=== PATIENT | female | born 1965 | race African-American/Black ===

== ENCOUNTER 2018-07-26 12:39 | Inpatient (IN) | payer OTHER ==
[2018-07-26 13:40] VITALS: BMI 19.5
--- NOTE | 2018-07-26 15:37 | HP ---
CIWA Score - CIWA Score Nausea/Vomitin Muscle Tremors: 2 Anxiety: 2 Agitation: 2 Paroxysmal Sweats: 1-Minimal Palms Moist Orientation: 0-Oriented Tacttile Disturbances: 1-Very Mild Itch/Numbness Auditory Disturbances: 1-Very Mild Visual Disturbances: 1-Very Mild Sensitivity Headache: 2-Mild CIWA-Ar Total Score: 15 Admission ROS BHS - HPI Chief Complaint: i need help to stop drinking alcohol,cocaine,marijuana,crystal met Allergies/Adverse Reactions: Allergies Allergy/AdvReac Type Severity Reaction Status Date / Time fluphenazine [From Prolixin] Allergy Severe Swelling Verified 06/04/18 22:16 haloperidol [From Haldol] Allergy Severe Swelling Verified 06/04/18 22:16 History of Present Illness: this 53 years old female with alcohol,cocaine and marijuana dependence,seeking detox,withdrawal symptom,last detox 06/04/18 to 06/07/18 not completed hiv since 1989 hearing loss left for 6 months schizophrenia multiple admissions in detox but keep relapsing longest period of sobriety 10 years weight loss schizophrenia Exam Limitations: No Limitations - Ebola screening Have you traveled outside of the country in the last 21 days: No Have you had contact with anyone from an Ebola affected area: No Have you been sick,other than usual withdrawal symptoms: No - Review of Systems Constitutional: Loss of Appetite, Malaise, Night Sweats, Changes in sleep, Weakness, Unintentional Wgt. Loss EENT: reports: Hearing Loss, Nose Congestion (hearing loss left) Respiratory: reports: Other (gini,copd) Cardiac: reports: No Symptoms Reported GI: reports: Diarrhea, Nausea, Vomiting, Abdominal cramping : reports: No Symptoms Reported Musculoskeletal: reports: Back Pain, Muscle Pain Integumentary: reports: Dryness Neuro: reports: Headache, Tremors Endocrine: reports: No Symptoms Reported Hematology: reports: No Symptoms Reported, Other (hiv) Psychiatric: reports: No Sypmtoms Reported, Judgement Intact, Mood/Affect Appropiate, other (schizophrenia) Patient History - Patient Medical History Hx Anemia: Yes (no meds ) Hx Asthma: Yes (on albuterol inhaler) Hx Chronic Obstructive Pulmonary Disease (COPD): Yes (on inhaler) Hx Cancer: No Hx Cardiac Disorders: No Hx Congestive Heart Failure: No Hx Hypertension: Yes (no med) Hx Hypercholesterolemia: No Hx Pacemaker: No HX Cerebrovascular Accident: No Hx Seizures: No Hx Dementia: No Hx Diabetes: No Hx Gastrointestinal Disorders: No Hx Liver Disease: No Hx Genitourinary Disorders: No Hx Sexually Transmitted Disorders: No Hx Renal Disease (ESRD): No Hx Thyroid Disease: No Hx Human Immunodeficiency Virus (HIV): Yes (1989 [place] ( reports CD count 182)) Hx Hepatitis C: No Hx Depression: Yes Hx Suicide Attempt: No Hx Bipolar Disorder: Yes Hx Schizophrenia: Yes Other Medical History: no suicidal,no homicidal - Patient Surgical History Past Surgical History: No - PPD History Previous Implant?: Yes Implanted On Prior [facility] Admission?: Yes Date: 06/06/18 Results: 0mm PPD to be Administered?: Yes - Reproductive History Patient is a Female of Child Bearing Age (11 -55 yrs old): Yes Patient : No - Smoking Cessation Smoking history: Current every day smoker Have you smoked in the past 12 months: Yes Aproximately how many cigarettes per day: 60 Hx Chewing Tobacco Use: No Initiated information on smoking cessation: Yes 'Breaking Loose' booklet given: 07/26/18 - Substance & Tx. History Hx Alcohol Use: Yes Hx Substance Use: Yes Substance Use Type: Alcohol, Cocaine, Marijuana Hx Substance Use Treatment: Yes ([facility] 06/04/18 to 06/07/18) - Substances Abused Alcohol Route: Oral Frequency: Daily Amount used: 1 liter of cognac Age of first use: 11 Date of Last Use: 07/25/18 Marijuana/Hashish Route: Smoking Frequency: Daily Amount used: $25 Age of first use: 11 Date of Last Use: 07/25/18 Crack Route: Smoking Frequency: Daily Amount used: $50-60 Age of first use: 11 Date of Last Use: 07/25/18 crystal meth Route: Inhalation Frequency: 1-3 times last 30 days Amount used: 1 hit Age of first use: 53 Date of Last Use: 07/25/18 Family Disease History - Family Disease History Family Disease History: Diabetes: Mother (, kidney disease ), CA: Father (alive, prostate CA ,dsa), Other: Father, Mother Admission Physical Exam BHS - Vital Signs Vital Signs: Vital Signs - 24 hr 07/26/18 13:38 Temperature 96.7 F L Pulse Rate 87 Respiratory 18 Rate Blood Pressure 113/74 - Physical General Appearance: Yes: Moderate Distress, Tremorous, Sweating, Anxious HEENTM: Yes: Normal ENT Inspection, RAMIRO, Pharynx Normal Respiratory: Yes: Lungs Clear, Normal Breath Sounds, No Respiratory Distress Neck: Yes: Within Normal Limits, Supple, Trachea in good position Breast: Yes: Breast Exam Deferred Cardiology: Yes: Within Normal Limits, Regular Rhythm, Regular Rate, S1, S2 Abdominal: Yes: Within Normal Limits, Normal Bowel Sounds, Non Tender, Soft Genitourinary: Yes: Within Normal Limits Back: Yes: Muscle Spasm Musculoskeletal: Yes: Back pain, Muscle Pain Extremities: Yes: Tremors Neurological: Yes: export coordinator II-XII NML intact, Alert, Motor Strength 5/5 Integumentary: Yes: Dry Lymphatic: Yes: Within Normal Limits - Diagnostic (1) Alcohol dependence with withdrawal Current Visit: No Status: Acute Qualifiers: Complication of substance-induced condition: uncomplicated Qualified Code(s ): F10.230 - Alcohol dependence with withdrawal, uncomplicated (2) Weight loss Current Visit: No Status: Acute (3) Cocaine dependence Current Visit: No Status: Chronic Qualifiers: Substance use status: uncomplicated Qualified Code(s): F14.20 - Cocaine dependence, uncomplicated (4) HIV (human immunodeficiency virus infection) Current Visit: No Status: Chronic (5) Hypertension Current Visit: No Status: Chronic Qualifiers: Hypertension type: essential hypertension Qualified Code(s): I10 - Essential (primary) hypertension (6) Marijuana dependence Current Visit: No Status: Chronic (7) Schizophrenia Current Visit: Yes Status: Acute Cleared for Admission [facility] - Detox or Rehab [facility] Level of Care: Medically Managed Detox Regimen/Protocol: Librium [facility] Breath Alcohol Content Breath Alcohol Content: 0 Urine Pregancy Test - Result Urine Test Results: Negative- NO Line Present Urine Drug Screen - Results Drug Screen Negative: No Urine Drug Screen Results: THC-Marijuana, HOMAR-Cocaine, AMP-Amphetamines, MET- Methamphetamine
[2018-07-26] MEDS ORDERED: IBUPROFEN 400 MG TABLET (FP) PO PRN (15:54)
[2018-07-26] MEDS ORDERED: NICOTINE POLACRILEX 4 MG GUM BC PRN (15:54)
[2018-07-26] MEDS ORDERED: ACETAMINOPHEN 325 MG TABLET (FP) PO PRN (15:54)
[2018-07-26] MEDS ORDERED: MAGNESIUM CITRATE 300 ML BOTTLE PO PRN (15:54)
[2018-07-26] MEDS ORDERED: diazePAM 5 MG TABLET PO PRN (15:54)
[2018-07-26] MEDS ORDERED: P-EPHED 60MG/TRIPROLIDI 2.5MG TABLET PO PRN (15:54)
[2018-07-26] MEDS ORDERED: MENTHOL/PHENOL 1 EACH UD MM PRN (15:54)
[2018-07-26] MEDS ORDERED: guaiFENesin/D-METHORPHAN HB 10 ML UNIT-DOSE CUPS PO PRN (15:54)
[2018-07-26] MEDS ORDERED: hydrOXYzine PAMOATE 25 MG CAPSULE (FP) PO PRN (15:54)
[2018-07-26] MEDS ORDERED: MAG HYDROX/AL HYDROX/SIMETH 30 ML UNIT-DOSE CUP PO PRN (15:54)
[2018-07-26] MEDS ORDERED: LOPERAMIDE HCL 2 MG CAPSULE PO PRN (15:54)
[2018-07-26] MEDS ORDERED: MAGNESIUM HYDROX 2400MG/30ML ORAL SUSPENSION 30 ML CUP PO PRN (15:54)
[2018-07-26] MEDS ORDERED: ALBUTEROL SO4 8 GM HFA INHALER IH PRN (16:01)
[2018-07-26] MEDS ORDERED: diazePAM 5 MG TABLET PO ONE (17:00)
[2018-07-26] MEDS: NICOTINE 21 MG/24 HOURS TOPICAL PATCH TD SCH (18:29)
[2018-07-26] MEDS ORDERED: THIAMINE HCL 100 MG TABLET (FP) PO SCH (22:00)
[2018-07-26] MEDS ORDERED: MELATONIN 5 MG TABLETS PO PRN (22:00)
[2018-07-26] MEDS: diazePAM 5 MG TABLET PO SCH (22:43)
[2018-07-27 02:28] LABS: URINE APPEARANCE SLCLOUDY; URINE BILIRUBIN NEGATIVE (<2.0 mg/dL); URINE COLOR YELLOW; URINE GLUCOSE (UA) NEGATIVE (NEGATIVE); URINE KETONE NEGATIVE (NEGATIVE); URINE NITRITE NEGATIVE (NEGATIVE); URINE UROBILINOGEN NEGATIVE mg/dL (0.2-1.0)
[2018-07-27 02:47] LABS: URINE LEUK ESTERASE 2+ (NEGATIVE); URINE PROTEIN 1+ (NEGATIVE)
[2018-07-27 02:56] LABS: EPI CELLS FEW /HPF (FEW); URINE HYALINE CAST 1 /lpf; URINE MUCUS RARE
[2018-07-27] MEDS: diazePAM 5 MG TABLET PO SCH ×2 (05:56→13:37)
[2018-07-27] MEDS ORDERED: SULFAMETHOXAZOLE/TRIMETHOPRIM 800MG/160MG D.S. TABLET PO SCH (10:00)
[2018-07-27] MEDS ORDERED: PRENATAL VITAMINS W/ FOLIC ACID TABLET (FP) PO SCH (10:00)
[2018-07-27] MEDS ORDERED: EMTRICITABINE 200MG/TENOFOVIR 300MG PO SCH (10:00)
[2018-07-27] MEDS ORDERED: TIOTROPIUM BROMIDE 2.5 MCG (SPIRIVA) RESPIMAT INHALER IH SCH (10:00)
[2018-07-27] MEDS ORDERED: DARUNAVIR ETHANOLATE 800 MG TAB PO SCH (10:00)
[2018-07-27] MEDS ORDERED: RITONAVIR 100 MG TABLET PO SCH (10:00)
[2018-07-27 10:04] LABS: HEMATOCRIT 30.7 % (32.4-45.2); HEMOGLOBIN 9.8 GM/dL (10.7-15.3); MCH 28.4 pg (25.7-33.7); MEAN CELL VOLUME 88.9 fl (80-96); MEAN PLT VOLUME 8.8 fl (7.5-11.1); PLATELET COUNT 212 K/MM3 (134-434); RBC 3.45 M/mm3 (3.60-5.2); RDW 14.9 % (11.6-15.6); WHITE BLOOD COUNT 5.5 K/mm3 (4.0-10.0)
[2018-07-27 10:19] LABS: ALBUMIN 2.7 g/dl (3.4-5.0); ALK PHOS 66 U/L (45-117); ANION GAP 8 MMOL/L (8-16); BILIRUBIN,TOTAL 0.4 mg/dL (0.2-1); BLOOD UREA NITROGEN 19 mg/dL (7-18); CALCIUM 8.6 mg/dL (8.5-10.1); CHLORIDE 112 mmol/L (98-107); CO2 23 mmol/L (21-32); CREATININE 0.8 mg/dL (0.55-1.3); GLUCOSE,RANDOM 74 mg/dL (74-106); POTASSIUM 4.2 mmol/L (3.5-5.1); SGOT/AST 27 U/L (15-37); SGPT/ALT 32 U/L (13-61); SODIUM 143 mmol/L (136-145)
--- NOTE | 2018-07-27 11:44 | EKG ---
Test Reason : Blood Pressure : / mmHG Vent. Rate : 066 BPM Atrial Rate : 066 BPM P-R Int : 138 ms QRS Dur : 082 ms QT Int : 408 ms P-R-T Axes : 078 -53 048 degrees QTc Int : 427 ms NORMAL SINUS RHYTHM LEFT ANTERIOR FASCICULAR BLOCK ABNORMAL ECG WHEN COMPARED WITH ECG OF 04-JUN-2018 22:52, NO SIGNIFICANT CHANGE WAS FOUND Confirmed by JONNATHAN POSADA, LUIS FELIPE ([id number]) on 07/27/2018 11:44:36 AM Referred By: Confirmed By:LUIS FELIPE DE SANTIAGO MD
[2018-07-27] MEDS ORDERED: FLU VACCINE QUAD 60 MCG/0.5 ML (MDV 18-19) IM ONE (12:00)
[2018-07-27] MEDS: NICOTINE 21 MG/24 HOURS TOPICAL PATCH TD SCH (12:47)
[2018-07-27 13:16] VITALS: BP 115/61; PULSE 106; TEMP 99.7
--- NOTE | 2018-07-27 13:55 | CONSULT ---
[facility] Psychiatric Consult - Data Date of interview: 07/27/18 Identifying data: Patient approached for psychiatric consultation. Pt. refusing to speak about her psychiatric history. Stated to movie writer, " Whats the point of this. I am going home." Pt. refused to continue conversation. Nursing staff informed.
--- NOTE | 2018-07-27 14:08 | DS ---
[facility] Detox Discharge Summary Admission Date: 07/26/18 Discharge Date: 07/27/18 - History Present History: Alcohol Dependence Additional Comments: 53 years old female admitted on 07/26/18 for alcohol withdrawal sx wants to leave the detox unit wants to go to rehab "I am ready" patient reported that she has an aftercare set up patient wants to go to aftercare today alert oriented x 3 no acute distress denies alcohol withdrawal sx Pertinent Past History: patient agrees to return to her infectious disease provider for follow up - Physical Exam Results Vital Signs: Vital Signs Temperature 99.7 F H 07/27/18 13:15 Pulse Rate 106 H 07/27/18 13:15 Respiratory Rate 20 07/27/18 13:15 Blood Pressure 115/61 07/27/18 13:15 O2 Sat by Pulse Oximetry (%) Pertinent Admission Physical Exam Findings: alcohol withdrawal sx Vital Signs Temperature 99.7 F H 07/27/18 13:15 Pulse Rate 106 H 07/27/18 13:15 Respiratory Rate 20 07/27/18 13:15 Blood Pressure 115/61 07/27/18 13:15 O2 Sat by Pulse Oximetry (%) Laboratory Last Values WBC 5.5 K/mm3 (4.0-10.0) 07/27/18 07:30 RBC 3.45 M/mm3 (3.60-5.2) L 07/27/18 07:30 Hgb 9.8 GM/dL (10.7-15.3) L 07/27/18 07:30 Hct 30.7 % (32.4-45.2) L 07/27/18 07:30 MCV 88.9 fl (80-96) 07/27/18 07:30 MCH 28.4 pg (25.7-33.7) 07/27/18 07:30 MCHC 32.0 g/dl (32.0-36.0) 07/27/18 07:30 RDW 14.9 % (11.6-15.6) 07/27/18 07:30 Plt Count 212 K/MM3 (134-434) 07/27/18 07:30 MPV 8.8 fl (7.5-11.1) 07/27/18 07:30 Sodium 143 mmol/L (136-145) 07/27/18 07:30 Potassium 4.2 mmol/L (3.5-5.1) 07/27/18 07:30 Chloride 112 mmol/L (98-107) H 07/27/18 07:30 Carbon Dioxide 23 mmol/L (21-32) 07/27/18 07:30 Anion Gap 8 MMOL/L (8-16) 07/27/18 07:30 BUN 19 mg/dL (7-18) H 07/27/18 07:30 Creatinine 0.8 mg/dL (0.55-1.3) 07/27/18 07:30 Creat Clearance w eGFR > 60 (>60) 07/27/18 07:30 Random Glucose 74 mg/dL (74-106) 07/27/18 07:30 Calcium 8.6 mg/dL (8.5-10.1) 07/27/18 07:30 Total Bilirubin 0.4 mg/dL (0.2-1) 07/27/18 07:30 AST 27 U/L (15-37) 07/27/18 07:30 ALT 32 U/L (13-61) 07/27/18 07:30 Alkaline Phosphatase 66 U/L (45-117) 07/27/18 07:30 Total Protein 7.0 g/dl (6.4-8.2) 07/27/18 07:30 Albumin 2.7 g/dl (3.4-5.0) L 07/27/18 07:30 Urine Color Yellow 07/26/18 23:30 Urine Appearance Slcloudy 07/26/18 23:30 Urine pH 5.0 (5.0-8.0) 07/26/18 23:30 Ur Specific [place] 1.025 (1.001-1.035) 07/26/18 23:30 Urine Protein 1+ (NEGATIVE) H 07/26/18 23:30 Urine Glucose (UA) Negative (NEGATIVE) 07/26/18 23:30 Urine Ketones Negative (NEGATIVE) 07/26/18 23:30 Urine Blood 1+ (NEGATIVE) H 07/26/18 23:30 Urine Nitrite Negative (NEGATIVE) 07/26/18 23:30 Urine Bilirubin Negative (<2.0 mg/dL) 07/26/18 23:30 Urine Urobilinogen Negative mg/dL (0.2-1.0) 07/26/18 23:30 Ur Leukocyte Esterase 2+ (NEGATIVE) H 07/26/18 23:30 Urine WBC (Auto) 25 /hpf (3-5) 07/26/18 23:30 Urine RBC (Auto) 15 /hpf (0-3) 07/26/18 23:30 Ur Epithelial Cells Few /HPF (FEW) 07/26/18 23:30 Hyaline Casts 1 /lpf 07/26/18 23:30 Urine Mucus Rare 07/26/18 23:30 RPR Titer Nonreactive (NONREACTIVE) 07/27/18 07:30 lab noted - Treatment Hospital Course: Detox Protocol Followed, Responded well Patient has Accepted a Rehab Referral to: as per counselor arranged - Medication Discharge Medications: Ambulatory Orders Darunavir Ethanolate [Prezista -] 800 mg PO DAILY 05/03/18 Emtricitabine/Tenofovir [Truvada -] 1 tab PO DAILY 05/03/18 Ritonavir [Norvir -] 100 mg PO DAILY 05/03/18 Albuterol Sulfate Inhaler - [Ventolin HFA Inhaler -] 2 puff IH Q4H PRN #1 inhaler 06/07/18 Sulfamethoxazole/Trimethoprim [Bactrim DS -] 1 each PO DAILY 07/26/18 Tiotropium [place] [Spiriva] 1 inh PO DAILY 07/26/18 - Diagnosis (1) Schizophrenia Current Visit: Yes Status: Suspected Qualifiers: Schizophrenia type: unspecified Qualified Code(s): F20.9 - Schizophrenia, unspecified (2) Alcohol dependence with withdrawal Current Visit: Yes Status: Acute Qualifiers: Complication of substance-induced condition: uncomplicated Qualified Code(s ): F10.230 - Alcohol dependence with withdrawal, uncomplicated (3) Asthma Current Visit: Yes Status: Chronic Qualifiers: Asthma severity: mild Asthma persistence: intermittent Asthma complication type: unspecified Qualified Code(s): J45.20 - Mild intermittent asthma, uncomplicated (4) Weight loss Current Visit: Yes Status: Acute (5) HIV (human immunodeficiency virus infection) Current Visit: Yes Status: Chronic (6) Hypertension Current Visit: Yes Status: Chronic Qualifiers: Hypertension type: essential hypertension Qualified Code(s): I10 - Essential (primary) hypertension - AMA Did Patient Leave Against Medical Advice: Yes
[2018-07-28] MEDS ORDERED: diazePAM 5 MG TABLET PO SCH (10:00)
[2018-07-30] MEDS ORDERED: diazePAM 5 MG TABLET PO SCH (10:00)
== END 2018-07-27 14:04 | disposition left against medical advice (07) | DRG 770 ==
LOC: YASAS 12:39 → Y6N 16:38
PROC: HZ2ZZZZ Detoxification Services for Substance Abuse Treatment (ICD-10-PCS; principal; 2018-07-26)
DX: F10.230 Alcohol dependence with withdrawal, uncomplicated (principal); F14.20 Cocaine dependence, uncomplicated; F12.20 Cannabis dependence, uncomplicated; F20.9 Schizophrenia, unspecified; B20 Human immunodeficiency virus [HIV] disease; I10 Essential (primary) hypertension; J45.20 Mild intermittent asthma, uncomplicated; H91.92 Unspecified hearing loss, left ear; R63.4 Abnormal weight loss; Z68.1 Body mass index [BMI] 19.9 or less, adult; N39.0 Urinary tract infection, site not specified; Z88.0 Allergy status to penicillin; Z59.0 Homelessness
CPT/HCPCS: 36415; 80053; 81003; 81015; 85027; 86593; 93005; 93010

== ENCOUNTER 2018-10-19 08:19 | Inpatient (IN) | payer OTHER ==
--- NOTE | 2018-10-19 09:05 | HP ---
CIWA Score Nausea/Vomitin Muscle Tremors: 2 Anxiety: 2 Agitation: 2 Paroxysmal Sweats: 1-Minimal Palms Moist Orientation: 0-Oriented Tacttile Disturbances: 1-Very Mild Itch/Numbness Auditory Disturbances: 1-Very Mild Visual Disturbances: 0-None Headache: 2-Mild CIWA-Ar Total Score: 13 - Admission Criteria [facility] Guidelines: Admission for Medically Managed Detox: Requires at least one of the followin. CIWA greater than 12 2. Seizures within the past 24 hours 3. Delirium tremens within the past 24 hours 4. Hallucinations within the past 24 hours 5. Acute intervention needed for co occurring medical disorder 6. Acute intervention needed for co occurring psychiatric disorder 7. Severe withdrawal that cannot be handled at a lower level of care (continued vomiting, continued diarrhea, abnormal vital signs) requiring intravenous medication and/or fluids 8. Patient presents the following: CIWA greater than 12 Admission Criteria Met: Admission criteria met Admission ROS S - HPI Chief Complaint: i need help to stop drinking alcohol,cocaine and marijuana Allergies/Adverse Reactions: Allergies Allergy/AdvReac Type Severity Reaction Status Date / Time fluphenazine [From Prolixin] Allergy Severe Swelling Verified 10/19/18 09:28 haloperidol [From Haldol] Allergy Severe Swelling Verified 10/19/18 09:28 History of Present Illness: this 53 years old male with alcohol,cocaine and marijuana dependence,,seeking detox,withdrawal symptom,last detox 07/26/18 to 07/27/18 not completed syncope nicotine dependence history if asthma,hypertension, hiv positive since 1989 non compliance ,no medication for 1 month longest period of sobriety 10 year bipolar disorder Exam Limitations: No Limitations - Ebola screening Have you traveled outside of the country in the last 21 days: No Have you had contact with anyone from an Ebola affected area: No - Review of Systems Constitutional: Loss of Appetite, Malaise, Night Sweats, Changes in sleep, Weakness, Unintentional Wgt. Loss EENT: reports: Nose Congestion, Other (hearinog deminish left ear) Respiratory: reports: No Symptoms reported (asthma) Cardiac: reports: No Symptoms Reported GI: reports: Nausea, Poor Appetite, Abdominal cramping : reports: No Symptoms Reported Musculoskeletal: reports: Back Pain, Muscle Pain Integumentary: reports: Dryness Neuro: reports: Headache, Tremors Endocrine: reports: No Symptoms Reported Hematology: reports: No Symptoms Reported, Other (hiv) Psychiatric: reports: No Sypmtoms Reported, Judgement Intact, Mood/Affect Appropiate, Orientated x3, other (bipolar disorder) Patient History - Patient Medical History Hx Anemia: Yes (no meds ) Hx Asthma: Yes (on albuterol inhaler) Hx Chronic Obstructive Pulmonary Disease (COPD): Yes (on inhaler) Hx Cancer: No Hx Cardiac Disorders: No Hx Congestive Heart Failure: No Hx Hypertension: Yes (no med) Hx Hypercholesterolemia: No Hx Pacemaker: No HX Cerebrovascular Accident: No Hx Seizures: No Hx Dementia: No Hx Diabetes: No Hx Gastrointestinal Disorders: No Hx Liver Disease: No Hx Genitourinary Disorders: No Hx Sexually Transmitted Disorders: No Hx Renal Disease (ESRD): No Hx Thyroid Disease: No Hx Human Immunodeficiency Virus (HIV): Yes (non compliance did not take madication fo 1 month) Hx Hepatitis C: No Hx Depression: Yes Hx Suicide Attempt: No Hx Bipolar Disorder: Yes Hx Schizophrenia: Yes Other Medical History: no suicidal,no homicidal,was told to have cancer of cervix [facility] assistant activities director - Patient Surgical History Past Surgical History: No - PPD History Previous Implant?: Yes Documented Results: Negative w/proof Date: 06/06/18 Results: 0mm PPD to be Administered?: No - Reproductive History Patient is a Female of Child Bearing Age (11 -55 yrs old): Yes Last Menstrual Period: 04/01/08 Patient : No - Smoking Cessation Smoking history: Current every day smoker Have you smoked in the past 12 months: Yes Aproximately how many cigarettes per day: 40 Hx Chewing Tobacco Use: No Initiated information on smoking cessation: Yes 'Breaking Loose' booklet given: 10/19/18 - Substance & Tx. History Hx Alcohol Use: Yes Hx Substance Use: Yes Substance Use Type: Alcohol, Cocaine, Marijuana Hx Substance Use Treatment: Yes ([facility] 07/26/18 to 07/27/18) - Substances Abused Alcohol Route: Oral Frequency: Daily Amount used: 2 pints of vodka Age of first use: 11 Date of Last Use: 10/18/18 Cocaine Route: Smoking Frequency: Daily Amount used: 50$ Age of first use: 19 Date of Last Use: 11/17/17 Marijuana/Hashish Route: Smoking Frequency: 1-2 times per week Amount used: 25$ Age of first use: 11 Date of Last Use: 10/12/18 Family Disease History - Family Disease History Family Disease History: Diabetes: Mother (, kidney disease ), CA: Father (alive, prostate CA ,dsa), Other: Father, Mother Admission Physical Exam S - Vital Signs Vital Signs: Vital Signs Temperature 96.9 F L 10/19/18 09:17 Pulse Rate 78 10/19/18 09:17 Respiratory Rate 20 10/19/18 09:17 Blood Pressure 117/70 10/19/18 09:17 O2 Sat by Pulse Oximetry (%) - Physical General Appearance: Yes: Moderate Distress, Tremorous, Irritable, Sweating, Anxious HEENTM: Yes: Normocephalic, RAMIRO, Pharynx Normal Respiratory: Yes: Lungs Clear, Normal Breath Sounds, No Respiratory Distress Neck: Yes: Within Normal Limits Breast: Yes: Breast Exam Deferred Cardiology: Yes: Within Normal Limits, Regular Rhythm, Regular Rate, S1, S2 Abdominal: Yes: Within Normal Limits, Normal Bowel Sounds, Non Tender, Flat, Soft Genitourinary: Yes: Within Normal Limits, Other (vaginal bleeding,history of ca of cervix,will follow up with assistant activities director at [facility]) Extremities: Yes: Tremors Neurological: Yes: process coordinator II-XII NML intact, Fully Oriented, Alert, Motor Strength 5/5 Integumentary: Yes: Dry Lymphatic: Yes: Within Normal Limits - Diagnostic (1) Weight loss Current Visit: No Status: Acute (2) Asthma Current Visit: No Status: Chronic Qualifiers: Asthma severity: mild Asthma persistence: intermittent Asthma complication type: unspecified Qualified Code(s): J45.20 - Mild intermittent asthma, uncomplicated (3) Cocaine dependence Current Visit: No Status: Chronic Qualifiers: Substance use status: uncomplicated Qualified Code(s): F14.20 - Cocaine dependence, uncomplicated (4) HIV (human immunodeficiency virus infection) Current Visit: No Status: Chronic (5) Hypertension Current Visit: No Status: Chronic Qualifiers: Hypertension type: essential hypertension Qualified Code(s): I10 - Essential (primary) hypertension (6) Marijuana dependence Current Visit: No Status: Chronic (7) Weight loss Current Visit: Yes Status: Acute (8) COPD (chronic obstructive pulmonary disease) Current Visit: Yes Status: Acute (9) History of malignant neoplasm of cervix Current Visit: Yes Status: Acute Cleared for Admission [facility] - Detox or Rehab [facility] Level of Care: Medically Managed Detox Regimen/Protocol: Librium [facility] Breath Alcohol Content Breath Alcohol Content: 0
[2018-10-19 09:21] VITALS: BMI 21.6
[2018-10-19] MEDS ORDERED: hydrOXYzine PAMOATE 25 MG CAPSULE (FP) PO PRN (09:24)
[2018-10-19] MEDS ORDERED: IBUPROFEN 400 MG TABLET (FP) PO PRN (09:24)
[2018-10-19] MEDS ORDERED: MAG HYDROX/AL HYDROX/SIMETH 30 ML UNIT-DOSE CUP PO PRN (09:24)
[2018-10-19] MEDS ORDERED: P-EPHED 60MG/TRIPROLIDI 2.5MG TABLET PO PRN (09:24)
[2018-10-19] MEDS ORDERED: MAGNESIUM HYDROX 2400MG/30ML ORAL SUSPENSION 30 ML CUP PO PRN (09:24)
[2018-10-19] MEDS ORDERED: ACETAMINOPHEN 325 MG TABLET (FP) PO PRN (09:24)
[2018-10-19] MEDS ORDERED: guaiFENesin/D-METHORPHAN HB 10 ML UNIT-DOSE CUPS PO PRN (09:24)
[2018-10-19] MEDS ORDERED: MENTHOL/PHENOL 1 EACH UD MM PRN (09:24)
[2018-10-19] MEDS ORDERED: chlordiazePOXIDE HCL 25 MG CAPSULE PO PRN (09:24)
[2018-10-19] MEDS ORDERED: LOPERAMIDE HCL 2 MG CAPSULE PO PRN (09:24)
[2018-10-19] MEDS ORDERED: MAGNESIUM CITRATE 300 ML BOTTLE PO PRN (09:24)
[2018-10-19] MEDS ORDERED: ALBUTEROL SO4 8 GM HFA INHALER IH PRN (10:20)
[2018-10-19] MEDS: chlordiazePOXIDE HCL 25 MG CAPSULE PO SCH ×3 (10:54→22:58)
[2018-10-19] MEDS: PRENATAL VITAMINS W/ FOLIC ACID TABLET (FP) PO SCH (10:54)
[2018-10-19] MEDS ORDERED: MELATONIN 5 MG TABLETS PO PRN (22:00)
[2018-10-19] MEDS: THIAMINE HCL 100 MG TABLET (FP) PO SCH (22:58)
[2018-10-20] MEDS: chlordiazePOXIDE HCL 25 MG CAPSULE PO SCH ×4 (06:09→22:36)
[2018-10-20 10:20] LABS: HEMOGLOBIN 11.8 GM/dL (10.7-15.3); MCH 27.7 pg (25.7-33.7); MEAN CELL VOLUME 89.3 fl (80-96); MEAN PLT VOLUME 9.3 fl (7.5-11.1); PLATELET COUNT 309 K/MM3 (134-434); RBC 4.26 M/mm3 (3.60-5.2); WHITE BLOOD COUNT 4.5 K/mm3 (4.0-10.0)
[2018-10-20] MEDS: PRENATAL VITAMINS W/ FOLIC ACID TABLET (FP) PO SCH (10:35)
[2018-10-20] MEDS: SULFAMETHOXAZOLE/TRIMETHOPRIM 800MG/160MG D.S. TABLET PO SCH (10:35)
[2018-10-20 10:49] LABS: ALBUMIN 3.4 g/dl (3.4-5.0); ALK PHOS 75 U/L (45-117); ANION GAP 7 MMOL/L (8-16); BILIRUBIN,TOTAL 0.3 mg/dL (0.2-1); BLOOD UREA NITROGEN 20 mg/dL (7-18); CALCIUM 8.8 mg/dL (8.5-10.1); CHLORIDE 108 mmol/L (98-107); CO2 22 mmol/L (21-32); CREATININE 0.7 mg/dL (0.55-1.3); GLUCOSE,RANDOM 83 mg/dL (74-106); POTASSIUM 4.1 mmol/L (3.5-5.1); SGOT/AST 20 U/L (15-37); SGPT/ALT 19 U/L (13-61); SODIUM 138 mmol/L (136-145); TOT PROT 8.8 g/dl (6.4-8.2)
[2018-10-20] MEDS: TIOTROPIUM BROMIDE 2.5 MCG (SPIRIVA) RESPIMAT INHALER IH SCH (14:36)
--- NOTE | 2018-10-20 15:10 | PN ---
S CIWA - CIWA Score Nausea/Vomitin-No Nausea/No Vomiting Muscle Tremors: None Anxiety: 4-Mod. Anxious/Guarded Agitation: 5 Paroxysmal Sweats: No Perspiration Orientation: 0-Oriented Tacttile Disturbances: 0-None Auditory Disturbances: 0-None Visual Disturbances: 0-None Headache: 0-None Present CIWA-Ar Total Score: 9 BHS Progress Note (SOAP) Subjective: PATIENT C/O INTERRUPTED SLEEP, IRRITABILITY AND ANXIETY. Objective: 10/20/18 15:08 Vital Signs Temperature 98.6 F 10/20/18 13:48 Pulse Rate 93 H 10/20/18 13:48 Respiratory Rate 16 10/20/18 13:48 Blood Pressure 131/82 10/20/18 13:48 O2 Sat by Pulse Oximetry (%) Laboratory Tests 10/20/18 10/20/18 10/20/18 05:45 05:45 05:45 WBC 4.5 RBC 4.26 Hgb 11.8 Hct 38.0 D MCV 89.3 MCH 27.7 MCHC 31.0 L RDW 16.0 H Plt Count 309 D MPV 9.3 Sodium 138 Potassium 4.1 Chloride 108 H Carbon Dioxide 22 Anion Gap 7 L BUN 20 H Creatinine 0.7 Creat Clearance w eGFR > 60 Random Glucose 83 Calcium 8.8 Total Bilirubin 0.3 AST 20 ALT 19 Alkaline Phosphatase 75 Total Protein 8.8 H Albumin 3.4 RPR Titer Nonreactive PE: ALERT AND ORIENTED X 3 SKIN WARM AND DRY EXT FULL ROM, NO EDEMA AMB AD TATA ANXIOUS, IRRITABLE. Assessment: 10/20/18 15:08 WITHDRAWAL SX Plan: CONTINUE DETOX ENCOURAGE ORAL FLUIDS REINFORCEMENT OF UNIT/DETOX PROTOCOL GIVEN BY STAFF CONTINUE TO MONITOR
[2018-10-20] MEDS: THIAMINE HCL 100 MG TABLET (FP) PO SCH (22:34)
[2018-10-21] MEDS: chlordiazePOXIDE HCL 25 MG CAPSULE PO SCH (06:34)
[2018-10-21] MEDS: chlordiazePOXIDE 5 MG CAPSULE PO SCH ×3 (10:42→23:00)
[2018-10-21] MEDS: SULFAMETHOXAZOLE/TRIMETHOPRIM 800MG/160MG D.S. TABLET PO SCH (10:42)
[2018-10-21] MEDS: TIOTROPIUM BROMIDE 2.5 MCG (SPIRIVA) RESPIMAT INHALER IH SCH (10:42)
[2018-10-21] MEDS: PRENATAL VITAMINS W/ FOLIC ACID TABLET (FP) PO SCH (10:50)
--- NOTE | 2018-10-21 11:24 | PN ---
S CIWA - CIWA Score Nausea/Vomitin Muscle Tremors: None Anxiety: 4-Mod. Anxious/Guarded Agitation: 4-Moderately Restless Paroxysmal Sweats: No Perspiration Orientation: 0-Oriented Tacttile Disturbances: 0-None Auditory Disturbances: 0-None Visual Disturbances: 0-None Headache: 2-Mild CIWA-Ar Total Score: 12 BHS Progress Note (SOAP) Subjective: PATIENT ANXIOUS/GUARDED AND EASILY AGITATED. C/O DIARRHEA AND HEADACHE. Objective: 10/21/18 11:22 Vital Signs Temperature 97.1 F L 10/21/18 09:53 Pulse Rate 115 H 10/21/18 09:53 Respiratory Rate 16 10/21/18 09:53 Blood Pressure 93/66 10/21/18 09:53 O2 Sat by Pulse Oximetry (%) Laboratory Tests 10/20/18 10/20/18 10/20/18 05:45 05:45 05:45 WBC 4.5 RBC 4.26 Hgb 11.8 Hct 38.0 D MCV 89.3 MCH 27.7 MCHC 31.0 L RDW 16.0 H Plt Count 309 D MPV 9.3 Sodium 138 Potassium 4.1 Chloride 108 H Carbon Dioxide 22 Anion Gap 7 L BUN 20 H Creatinine 0.7 Creat Clearance w eGFR > 60 Random Glucose 83 Calcium 8.8 Total Bilirubin 0.3 AST 20 ALT 19 Alkaline Phosphatase 75 Total Protein 8.8 H Albumin 3.4 RPR Titer Nonreactive PE; ALERT AND ORIENTED X 3 SKIN WARM AND DRY EXT FULL ROM, NO VISIBLE TREMORS IRRITABLE, ANSIOUS/GUARDED Assessment: 10/21/18 11:23 WITHDRAWAL SX Plan: CONTINUE DETOX ENCOURAGE ORAL FLUIDS CONTINUE TO MONITOR CLINICALLY
[2018-10-21] MEDS: THIAMINE HCL 100 MG TABLET (FP) PO SCH (23:00)
[2018-10-22] MEDS: chlordiazePOXIDE 5 MG CAPSULE PO SCH (06:00)
[2018-10-22 06:29] VITALS: BP 115/69; PULSE 79; TEMP 97
--- NOTE | 2018-10-22 08:51 | PN ---
S Progress Note (SOAP) Subjective: alert,irritable,anxious,interrupted sleep Objective: 10/22/18 08:51 Vital Signs Temperature 97 F L 10/22/18 06:29 Pulse Rate 79 10/22/18 06:29 Respiratory Rate 18 10/22/18 06:29 Blood Pressure 115/69 10/22/18 06:29 O2 Sat by Pulse Oximetry (%) Assessment: 10/22/18 08:51 withdrawal symptom Plan: continue detox
--- NOTE | 2018-10-22 08:53 | PN ---
S Progress Note Note: patient did ont want to complete treatment,signed release ama for personal problem
--- NOTE | 2018-10-22 09:00 | DS ---
[facility] Detox Discharge Summary Admission Date: 10/19/18 Discharge Date: 10/22/18 - History Present History: Alcohol Dependence, Cannabis Dependence, Cocaine Dependence Additional Comments: patient signed release ama,for personal reason,follow up with family doctor for medical problem,risk of relapsing explain for patient, to er if any emergency problem Pertinent Past History: hiv hypertension weight loss copd - Physical Exam Results Vital Signs: Vital Signs Temperature 97 F L 10/22/18 06:29 Pulse Rate 79 10/22/18 06:29 Respiratory Rate 18 10/22/18 06:29 Blood Pressure 115/69 10/22/18 06:29 O2 Sat by Pulse Oximetry (%) Pertinent Admission Physical Exam Findings: Vital Signs Temperature 97 F L 10/22/18 06:29 Pulse Rate 79 10/22/18 06:29 Respiratory Rate 18 10/22/18 06:29 Blood Pressure 115/69 10/22/18 06:29 O2 Sat by Pulse Oximetry (%) Laboratory Last Values WBC 4.5 K/mm3 (4.0-10.0) 10/20/18 05:45 RBC 4.26 M/mm3 (3.60-5.2) 10/20/18 05:45 Hgb 11.8 GM/dL (10.7-15.3) 10/20/18 05:45 Hct 38.0 % (32.4-45.2) D 10/20/18 05:45 MCV 89.3 fl (80-96) 10/20/18 05:45 MCH 27.7 pg (25.7-33.7) 10/20/18 05:45 MCHC 31.0 g/dl (32.0-36.0) L 10/20/18 05:45 RDW 16.0 % (11.6-15.6) H 10/20/18 05:45 Plt Count 309 K/MM3 (134-434) D 10/20/18 05:45 MPV 9.3 fl (7.5-11.1) 10/20/18 05:45 Sodium 138 mmol/L (136-145) 10/20/18 05:45 Potassium 4.1 mmol/L (3.5-5.1) 10/20/18 05:45 Chloride 108 mmol/L (98-107) H 10/20/18 05:45 Carbon Dioxide 22 mmol/L (21-32) 10/20/18 05:45 Anion Gap 7 MMOL/L (8-16) L 10/20/18 05:45 BUN 20 mg/dL (7-18) H 10/20/18 05:45 Creatinine 0.7 mg/dL (0.55-1.3) 10/20/18 05:45 Creat Clearance w eGFR > 60 (>60) 10/20/18 05:45 Random Glucose 83 mg/dL (74-106) 10/20/18 05:45 Calcium 8.8 mg/dL (8.5-10.1) 10/20/18 05:45 Total Bilirubin 0.3 mg/dL (0.2-1) 10/20/18 05:45 AST 20 U/L (15-37) 10/20/18 05:45 ALT 19 U/L (13-61) 10/20/18 05:45 Alkaline Phosphatase 75 U/L (45-117) 10/20/18 05:45 Total Protein 8.8 g/dl (6.4-8.2) H 10/20/18 05:45 Albumin 3.4 g/dl (3.4-5.0) 10/20/18 05:45 RPR Titer Nonreactive (NONREACTIVE) 10/20/18 05:45 - Medication Discharge Medications: Ambulatory Orders Darunavir Ethanolate [Prezista -] 800 mg PO DAILY 05/03/18 Emtricitabine/Tenofovir [Truvada -] 1 tab PO DAILY 05/03/18 Ritonavir [Norvir -] 100 mg PO DAILY 05/03/18 Albuterol Sulfate Inhaler - [Ventolin HFA Inhaler -] 2 puff IH Q4H PRN #1 inhaler 06/07/18 Sulfamethoxazole/Trimethoprim [Bactrim DS -] 1 each PO DAILY 07/26/18 Tiotropium Raven [Spiriva] 1 inh PO DAILY 07/26/18 - Diagnosis (1) Weight loss Current Visit: No Status: Acute (2) Asthma Current Visit: No Status: Chronic Qualifiers: Asthma severity: mild Asthma persistence: intermittent Asthma complication type: unspecified Qualified Code(s): J45.20 - Mild intermittent asthma, uncomplicated (3) Cocaine dependence Current Visit: No Status: Chronic Qualifiers: Substance use status: uncomplicated Qualified Code(s): F14.20 - Cocaine dependence, uncomplicated (4) HIV (human immunodeficiency virus infection) Current Visit: No Status: Chronic (5) Hypertension Current Visit: No Status: Chronic Qualifiers: Hypertension type: essential hypertension Qualified Code(s): I10 - Essential (primary) hypertension (6) Marijuana dependence Current Visit: No Status: Chronic (7) Weight loss Current Visit: Yes Status: Acute (8) COPD (chronic obstructive pulmonary disease) Current Visit: Yes Status: Acute (9) History of malignant neoplasm of cervix Current Visit: Yes Status: Acute - AMA Did Patient Leave Against Medical Advice: Yes
[2018-10-22] MEDS ORDERED: chlordiazePOXIDE HCL 10 MG CAPSULE PO SCH (11:00)
== END 2018-10-22 08:30 | disposition left against medical advice (07) | DRG 770 ==
LOC: YASAS 08:19 → Y3N 09:52
PROC: HZ2ZZZZ Detoxification Services for Substance Abuse Treatment (ICD-10-PCS; principal; 2018-10-19)
DX: F10.230 Alcohol dependence with withdrawal, uncomplicated (principal); F14.20 Cocaine dependence, uncomplicated; F12.20 Cannabis dependence, uncomplicated; F17.210 Nicotine dependence, cigarettes, uncomplicated; I10 Essential (primary) hypertension; J45.20 Mild intermittent asthma, uncomplicated; J44.9 Chronic obstructive pulmonary disease, unspecified; B20 Human immunodeficiency virus [HIV] disease; Z85.41 Personal history of malignant neoplasm of cervix uteri; Z91.14 Patient's other noncompliance with medication regimen; Z59.0 Homelessness
CPT/HCPCS: 36415; 80053; 85027; 86593

== ENCOUNTER 2020-07-10 13:10 | Inpatient (IN) | payer OTHER ==
--- NOTE | 2020-07-10 14:04 | BHS.RME ---
Substance Use & Tx History - Substance Use History Alcohol Substance amount: 2-3 beers x 24 ounce can, one pint Vodka once per month Frequency of use: Daily Substance route: Oral Date of Last Use: 07/09/20 Cocaine-Crack Substance amount: $100 Frequency of use: Daily Substance route: Smoking Date of Last Use: 07/09/20 Nicotine Substance amount: one pack Frequency of use: Daily Substance route: Smoking Date of Last Use: 07/10/20 - Last Treatment Date of last treatment: Oct 2018, [facility] detox Physical/Psych/Mental Status - Behavior General Behavior: Increased activity (restlessness, agitation) Eye Contact: Normal - Cooperativeness Cooperativeness: Cooperative - Thinking Thought Processes: Tight Thought content: Future oriented - Physical Health Problems Is patient presently having any pain?: No Does patient presently have any injuries (include location): Yes (fell one week ago, struck right leg) Does patient currently have a fever: No CIWA Nausea/Vomitin-No Nausea/No Vomiting Muscle Tremors: 3 Anxiety: 3 Agitation: 2 Paroxysmal Sweats: 1-Minimal Palms Moist Orientation: 0-Oriented Tacttile Disturbances: 0-None Auditory Disturbances: 0-None Visual Disturbances: 0-None Headache: 0-None Present (meets criteria, high risk relapse, comorbid med and psych issues) CIWA-Ar Total Score: 9
--- NOTE | 2020-07-10 15:56 | HP ---
CIWA Score Nausea/Vomitin-No Nausea/No Vomiting Muscle Tremors: 3 Anxiety: 3 Agitation: 2 Paroxysmal Sweats: 1-Minimal Palms Moist Orientation: 0-Oriented Tacttile Disturbances: 0-None Auditory Disturbances: 0-None Visual Disturbances: 0-None Headache: 0-None Present (meets criteria, high risk relapse, comorbid med and psych issues) CIWA-Ar Total Score: 9 - Admission Criteria OASAS Guidelines: Admission for Medically Managed Detox: Requires at least one of the followin. CIWA greater than 12 2. Seizures within the past 24 hours 3. Delirium tremens within the past 24 hours 4. Hallucinations within the past 24 hours 5. Acute intervention needed for co occurring medical disorder 6. Acute intervention needed for co occurring psychiatric disorder 7. Severe withdrawal that cannot be handled at a lower level of care (continued vomiting, continued diarrhea, abnormal vital signs) requiring intravenous medication and/or fluids 8. Admitting History and Physical - Past Medical History ...LMP: 04/01/08 - Smoking History Smoking history: Current every day smoker Have you smoked in the past 12 months: Yes Aproximately how many cigarettes per day: 40 - Alcohol/Substance Use Hx Alcohol Use: Yes Admission [facility] Chief Complaint: detox from crack cocaine and alcohol Allergies/Adverse Reactions: Allergies Allergy/AdvReac Type Severity Reaction Status Date / Time fluphenazine [From Prolixin] Allergy Severe Swelling Verified 07/10/20 16:50 haloperidol [From Haldol] Allergy Severe Swelling Verified 07/10/20 16:50 History of Present Illness: Patient is a 55 y/o female with a history of HIV, bipolar, and asthma who is here for detox from crack cocaine and alcohol. First started drinking alcohol at age 11. Drinks everyday, 2-3 24oz beers. Denies ever having a seizure from alcohol abuse. Denies blacking out from alcohol abuse. Positive for eyeopener. Patient has done rehab 2-3 times. Patient was sober for 5 years. Last used yesterday. Patient also uses crack, started using at age 24, uses 100 dollars a day, last used yesterday. never overdosed from crack, thinks in the pst she may have overdosed from cocaine as a teenager. Patient uses 1 pack of cigarettes a day. - Substance Use History Alcohol Substance amount: 2-3 beers x 24 ounce can, one pint Vodka once per month Frequency of use: Daily Substance route: Oral Date of Last Use: 07/09/20 Cocaine-Crack Substance amount: $100 Frequency of use: Daily Substance route: Smoking Date of Last Use: 07/09/20 Nicotine Substance amount: one pack Frequency of use: Daily Substance route: Smoking Date of Last Use: 07/10/20 SGHX: none psych: bipolar social: homeless, no job Patient meets criteria for inpatient detox from alcohol, poor social status and high risk of relapsing. - Ebola screening Have you traveled outside of the country in the last 21 days: No Have you had contact with anyone from an Ebola affected area: No Have you been sick,other than usual withdrawal symptoms: No Do you have a fever: No - Review of Systems Constitutional: Other (denies fever, chills) EENT: denies: Blurred Vision, Double Vision, Tinnitus Respiratory: denies: Cough, Shortness of Breath, Wheezing Cardiac: denies: Chest Pain GI: denies: Constipated, Diarrhea, Nausea, Vomiting : denies: Dysuria Musculoskeletal: reports: Back Pain. denies: Muscle Pain Integumentary: reports: Rash (groin rash). denies: Bruising Neuro: denies: Headache, Numbness, Tingling, Dizziness Endocrine: denies: Change in Weight Hematology: denies: Anemia Psychiatric: denies: Anxious, Depressed Patient History - Patient Medical History Hx Anemia: Yes (no meds ) Hx Asthma: Yes (on albuterol inhaler) Hx Chronic Obstructive Pulmonary Disease (COPD): Yes (on inhaler) Hx Cancer: No Hx Cardiac Disorders: No Hx Congestive Heart Failure: No Hx Hypertension: Yes (no med) Hx Hypercholesterolemia: No Hx Pacemaker: No HX Cerebrovascular Accident: No Hx Seizures: No Hx Dementia: No Hx Diabetes: No Hx Gastrointestinal Disorders: No Hx Liver Disease: No Hx Genitourinary Disorders: No Hx Sexually Transmitted Disorders: No Hx Renal Disease (ESRD): No Hx Thyroid Disease: No Hx Human Immunodeficiency Virus (HIV): Yes (non compliance did not take madication fo 1 month) Hx Hepatitis C: No Hx Depression: Yes Hx Suicide Attempt: No Hx Bipolar Disorder: Yes Hx Schizophrenia: Yes - Patient Surgical History Past Surgical History: No - PPD History Date: 06/06/18 Results: 0mm - Reproductive History Last Menstrual Period: 04/01/08 - Smoking Cessation Smoking history: Current every day smoker Have you smoked in the past 12 months: Yes Aproximately how many cigarettes per day: 40 Cigars Per Day: 0 Hx Chewing Tobacco Use: No Initiated information on smoking cessation: No - Substance & Tx. History Hx Alcohol Use: Yes - Substances abused Alcohol Substance route: Oral Frequency: Daily Amount used: 3 to 4 24 ounces can of beer/ half a pint vodka. Age of first use: 11 Date of last use: 07/10/20 Cocaine Other (specify): crack Substance route: Smoking Frequency: 1-2 times per week Amount used: 100 dollars Age of first use: 24 Date of last use: 07/10/20 Admission Physical Exam [facility] - Physical General Appearance: Yes: No Apparent Distress HEENTM: Yes: Hearing grossly Normal Respiratory: Yes: Within Normal Limits, Chest Non-Tender, Normal Breath Sounds, No Respiratory Distress Neck: Yes: Within Normal Limits Cardiology: Yes: Within Normal Limits, Regular Rhythm, Regular Rate Abdominal: Yes: Normal Bowel Sounds, Flat Musculoskeletal: Yes: full range of Motion Extremities: Yes: Normal Capillary Refill Neurological: Yes: Fully Oriented, Normal Mood/Affect, Normal Response Integumentary: Yes: Rash (to groin, some white crusting) - Diagnostic (1) Alcohol dependence with uncomplicated withdrawal Current Visit: No Status: Acute (2) COPD (chronic obstructive pulmonary disease) Current Visit: No Status: Acute (3) Asthma Current Visit: No Status: Chronic Qualifiers: Asthma severity: mild Asthma persistence: intermittent Asthma complication type: unspecified Qualified Code(s): J45.20 - Mild intermittent asthma, uncomplicated (4) HIV (human immunodeficiency virus infection) Current Visit: No Status: Chronic Cleared for Admission [facility] - Detox or Rehab [facility] Level of Care: Medically Managed Detox Regimen/Protocol: Librium Breathalyzer - Breathalyzer Breathalyzer: 0 Vital Signs - Vital Signs Vital signs refused: No Temperature: 97.3 F Pulse Rate: 89 Respiratory Rate: 20 Blood Pressure: 153/91 - Height Height: 5 ft 7 in - Weight Weight: 76.204 kg - BMI Body Mass Index (BMI): 26.3 Urine Drug Screen - Test Device Lot number: [id number] Expiration date: 02/06/22 - Control Is test valid?: Yes - Results Drug screen NEGATIVE: No Urine drug screen results: THC-Marijuana, HOMAR-Cocaine Inpatient Rehab Admission - Rehab Decision to Admit Inpatient rehab admission?: No
[2020-07-10 15:58] VITALS: BMI 26.3
[2020-07-10] MEDS ORDERED: ACETAMINOPHEN 325 MG TABLET (FP) PO PRN ×2 (16:02)
[2020-07-10] MEDS ORDERED: NICOTINE POLACRILEX 2 MG GUM BUC PRN (16:02)
[2020-07-10] MEDS ORDERED: MAG HYDROX/AL HYDROX/SIMETH 30 ML UNIT-DOSE CUP PO PRN (16:02)
[2020-07-10] MEDS ORDERED: METHOCARBAMOL 500 MG TABLET PO PRN (16:02)
[2020-07-10] MEDS ORDERED: MAGNESIUM CITRATE 300 ML BOTTLE PO PRN (16:02)
[2020-07-10] MEDS ORDERED: MAGNESIUM HYDROX 2400MG/30ML ORAL SUSPENSION 30 ML CUP PO PRN (16:02)
[2020-07-10] MEDS ORDERED: ONDANSETRON *ODT* 4 MG TABLET SL PRN (16:02)
[2020-07-10] MEDS ORDERED: chlordiazePOXIDE HCL 25 MG CAPSULE PO PRN (16:02)
[2020-07-10] MEDS ORDERED: IBUPROFEN 400 MG TABLET (FP) PO PRN (16:02)
[2020-07-10] MEDS ORDERED: MENTHOL/PHENOL 1 EACH UD MM PRN (16:02)
[2020-07-10] MEDS ORDERED: BISMUTH SUBSALICYLATE 524 MG/30 ML UD PO PRN (16:02)
[2020-07-10] MEDS ORDERED: ALBUTEROL SO4 HFA INHALER IH PRN (16:04)
[2020-07-10] MEDS: chlordiazePOXIDE HCL 25 MG CAPSULE PO SCH ×2 (18:10→22:14)
[2020-07-10] MEDS: PRENATAL VITAMINS W/ FOLIC ACID TABLET (FP) PO SCH (18:11)
[2020-07-10] MEDS: NICOTINE 21 MG/24 HOURS TOPICAL PATCH TD SCH (18:15)
[2020-07-10] MEDS: hydrOXYzine PAMOATE 25 MG CAPSULE (FP) PO SCH ×2 (18:15→22:14)
[2020-07-10] MEDS: NYSTATIN 100,000 UNIT/GM TOPICAL CREAM 15 GM TUBE TP SCH (19:41)
[2020-07-10] MEDS: THIAMINE HCL 100 MG TABLET (FP) PO SCH (22:14)
[2020-07-10] MEDS: MELATONIN 5 MG TABLETS PO SCH (22:14)
[2020-07-11] MEDS: NYSTATIN 100,000 UNIT/GM TOPICAL CREAM 15 GM TUBE TP SCH ×4 (01:31→18:12)
[2020-07-11] MEDS: chlordiazePOXIDE HCL 25 MG CAPSULE PO SCH ×4 (06:41→22:23)
[2020-07-11] MEDS: hydrOXYzine PAMOATE 25 MG CAPSULE (FP) PO SCH ×3 (06:41→14:14)
[2020-07-11] MEDS: NICOTINE 21 MG/24 HOURS TOPICAL PATCH TD SCH (09:58)
[2020-07-11] MEDS: PRENATAL VITAMINS W/ FOLIC ACID TABLET (FP) PO SCH (09:59)
[2020-07-11] MEDS: DARUNAVIR/COB/EMTRI/TENOF (SYMTUZA) TABLET (NF) PO SCH (09:59)
[2020-07-11] MEDS: TIOTROPIUM BROMIDE 2.5 MCG (SPIRIVA) RESPIMAT INHALER IH SCH (09:59)
[2020-07-11] MEDS ORDERED: EMTRICITABINE PO SCH (10:00)
[2020-07-11] MEDS ORDERED: TENOFOVIR ALAFENAMIDE PO SCH (10:00)
[2020-07-11] MEDS ORDERED: COBICISTAT PO SCH (10:00)
[2020-07-11] MEDS ORDERED: DARUNAVIR PO SCH (10:00)
[2020-07-11 11:02] LABS: HEMOGLOBIN 9.8 GM/dL (10.7-15.3); MCH 29.7 pg (25.7-33.7); MCHC 32.5 g/dl (32.0-36.0); MEAN CELL VOLUME 91.3 fl (80-96); MEAN PLT VOLUME 9.7 fl (7.5-11.1); PLATELET COUNT 124 K/MM3 (134-434); RBC 3.29 M/mm3 (3.60-5.2); RDW 14.6 % (11.6-15.6); WHITE BLOOD COUNT 2.5 K/mm3 (4.0-10.0)
[2020-07-11 11:18] LABS: ALBUMIN 2.7 g/dl (3.4-5.0); BLOOD UREA NITROGEN 8.7 mg/dL (7-18); CALCIUM 8.4 mg/dL (8.5-10.1); POTASSIUM 3.4 mmol/L (3.5-5.1)
--- NOTE | 2020-07-11 11:21 | CONSULT ---
[facility] Psychiatric Consult - Data Date of interview: 07/11/20 Admission source: [facility] Identifying data: Patient is a 55 year old black female, mother of five, unemployed, homeless, and is supported with SSI benefits. This is one of multiple admissions for patient. Patient admitted to for alcohol and cocaine dependence. Substance Abuse History: Smoking Cessation. Smoking history: Current every day smoker. Have you smoked in the past 12 months: Yes. Aproximately how many cigarettes per day: 40. Cigars Per Day: 0. Hx Chewing Tobacco Use: No. Initiated information on smoking cessation: No. - Substance & Tx. History. Hx Alcohol Use: Yes. - Substances abused. Alcohol. Substance route: Oral. Frequency: Daily. Amount used: 3 to 4 24 ounces can of beer/ half a pint vodka. Age of first use: 11. Date of last use: 07/10/20. Cocaine. Other (specify): crack. Substance route: Smoking. Frequency: 1-2 times per week. Amount used: 100 dollars. Age of first use: 24. Date of last use: 07/10/20 Medical History: Anemia, Asthma, Hypertension Psychiatric History: Patient reports history of multiple psychiatric hospitalizations since the age of 15. She reports hospitalizations at [facility], [facility], and other facilities in [place]. Diagnosis of Bipolar disorder. Ms. Avila most recent psychiatric hospitalization was in July of [address] [facility] due to mood dysregulation. She was prescribed Zyprexa 10mg + Depakote 1000mg HS. Patient see's Dr. Lui at the [facility] in [place]. States that she is currently prescribed zyprexa 10mg HS + Depakote 1000mg. Reports most recently taking her medications one week ago. No reported history of suicide attempt. At present patient reports stable mood. Physical/Sexual Abuse/Trauma History: Not discussed. Mental Status Exam - Mental Status Exam Alert and Oriented to: Time, Place, Person Cognitive Function: Good Patient Appearance: Well Groomed Mood: Withdrawn Affect: Mood Congruent Patient Behavior: Fatigued, Cooperative Speech Pattern: Appropriate Voice Loudness: Normal Thought Process: Goal Oriented Thought Disorder: Not Present Hallucinations: Denies Suicidal Ideation: Denies Homicidal Ideation: Denies Insight/Judgement: Poor Sleep: Fair Appetite: Fair Muscle strength/Tone: Normal Gait/Station: Normal Psychiatric Findings - Problem List ([place] 1, 2,3) (1) Cannabis dependence Current Visit: Yes Status: Acute (2) Alcohol dependence with uncomplicated withdrawal Current Visit: Yes Status: Acute (3) Cocaine dependence Current Visit: Yes Status: Chronic Qualifiers: Substance use status: uncomplicated Qualified Code(s): F14.20 - Cocaine dependence, uncomplicated (4) Bipolar disorder Current Visit: Yes Status: Chronic - Initial Treatment Plan Initial Treatment Plan: Psychoeducation provided. Detoxification in progress. Will order Zyprexa 10mg HS + Depakote 500mg HS. Benefits and side effects discussed. Verbal consent given.
[2020-07-11 11:23] LABS: BILIRUBIN,TOTAL 0.6 mg/dL (0.2-1); CREATININE 0.6 mg/dL (0.55-1.3); TOT PROT 7.8 g/dl (6.4-8.2)
[2020-07-11] MEDS ORDERED: PNEUMOC 13-VAL CONJ-DIP CRM/PF 0.5 ML DISP.SYRIN IM ONE (12:00)
[2020-07-11] MEDS ORDERED: hydrOXYzine PAMOATE 25 MG CAPSULE (FP) PO PRN (14:16)
--- NOTE | 2020-07-11 14:23 | PN ---
S CIWA - CIWA Score Nausea/Vomitin-No Nausea/No Vomiting Muscle Tremors: 2 Anxiety: 2 Agitation: 2 Paroxysmal Sweats: 2 Orientation: 0-Oriented Tacttile Disturbances: 0-None Auditory Disturbances: 0-None Visual Disturbances: 0-None Headache: 0-None Present CIWA-Ar Total Score: 8 S Progress Note (SOAP) Subjective: tired sleepy sweats interrupted sleep Objective: 07/11/20 14:22 Vital Signs Temperature 96.4 F L 07/11/20 09:01 Pulse Rate 74 07/11/20 09:01 Respiratory Rate 18 07/11/20 09:01 Blood Pressure 145/87 07/11/20 09:01 O2 Sat by Pulse Oximetry (%) 96 07/11/20 09:01 Laboratory Tests 07/11/20 07/11/20 07/11/20 08:45 08:45 08:45 WBC 2.5 L RBC 3.29 L Hgb 9.8 L Hct 30.0 L D MCV 91.3 MCH 29.7 MCHC 32.5 RDW 14.6 Plt Count 124 L D MPV 9.7 Sodium 143 Potassium 3.4 L Chloride 114 H Carbon Dioxide 26 Anion Gap 4 L BUN 8.7 Creatinine 0.6 Est GFR (CKD-EPI)AfAm 117.27 Est GFR (CKD-EPI)NonAf 101.18 Random Glucose 83 Calcium 8.4 L Total Bilirubin 0.6 AST 17 ALT 17 Alkaline Phosphatase 64 Total Protein 7.8 Albumin 2.7 L Syphilis Serology Non-reactive labs noted low potassium 3.4 low H:H noted aaox3 ambulating no acute distress Assessment: 07/11/20 14:22 withdrawals Plan: continue detox increase fluids kdur [id number] x 3 days ordered iron supplement ordered repeat labs
[2020-07-11] MEDS: POTASSIUM CHLORIDE ORAL LIQUID 20 MEQ/15 ML PO SCH (15:11)
[2020-07-11] MEDS: FERROUS SO4 325 MG TABLET (FP) PO SCH (18:09)
[2020-07-11] MEDS: DIVALPROEX SODIUM 500 MG TABLET E.C. PO SCH (22:23)
[2020-07-11] MEDS: THIAMINE HCL 100 MG TABLET (FP) PO SCH (22:23)
[2020-07-11] MEDS: OLANZapine 10 MG TABLET PO SCH (22:23)
[2020-07-11] MEDS: MELATONIN 5 MG TABLETS PO SCH (22:24)
[2020-07-12] MEDS: NYSTATIN 100,000 UNIT/GM TOPICAL CREAM 15 GM TUBE TP SCH ×4 (01:41→22:14)
[2020-07-12] MEDS: chlordiazePOXIDE HCL 25 MG CAPSULE PO SCH ×4 (06:00→22:14)
[2020-07-12] MEDS: FERROUS SO4 325 MG TABLET (FP) PO SCH ×3 (08:18→17:56)
[2020-07-12] MEDS: NICOTINE 21 MG/24 HOURS TOPICAL PATCH TD SCH (10:44)
[2020-07-12] MEDS: POTASSIUM CHLORIDE ORAL LIQUID 20 MEQ/15 ML PO SCH (10:44)
[2020-07-12] MEDS: PRENATAL VITAMINS W/ FOLIC ACID TABLET (FP) PO SCH (10:44)
[2020-07-12] MEDS: DARUNAVIR/COB/EMTRI/TENOF (SYMTUZA) TABLET (NF) PO SCH (10:44)
[2020-07-12] MEDS: TIOTROPIUM BROMIDE 2.5 MCG (SPIRIVA) RESPIMAT INHALER IH SCH (10:44)
--- NOTE | 2020-07-12 11:45 | PN ---
S CIWA - CIWA Score Nausea/Vomitin-No Nausea/No Vomiting Muscle Tremors: 2 Anxiety: 2 Agitation: 3 Paroxysmal Sweats: 2 Orientation: 0-Oriented Tacttile Disturbances: 0-None Auditory Disturbances: 0-None Visual Disturbances: 0-None Headache: 0-None Present CIWA-Ar Total Score: 9 S Progress Note (SOAP) Subjective: sweats shakes chills body aches interrupted sleep Objective: 07/12/20 11:43 Vital Signs Temperature 97.3 F L 07/12/20 05:45 Pulse Rate 70 07/12/20 05:45 Respiratory Rate 07/12/20 05:45 Blood Pressure 146/86 07/12/20 05:45 O2 Sat by Pulse Oximetry (%) 98 07/12/20 05:45 Laboratory Tests 07/10/20 07/11/20 07/11/20 17:00 08:45 08:45 WBC 2.5 L RBC 3.29 L Hgb 9.8 L Hct 30.0 L D MCV 91.3 MCH 29.7 MCHC 32.5 RDW 14.6 Plt Count 124 L D MPV 9.7 Sodium Potassium Chloride Carbon Dioxide Anion Gap BUN Creatinine Est GFR (CKD-EPI)AfAm Est GFR (CKD-EPI)NonAf Random Glucose Calcium Total Bilirubin AST ALT Alkaline Phosphatase Total Protein Albumin Syphilis Serology Non-reactive COVID-19 (WM) Not detected 07/11/20 08:45 WBC RBC Hgb Hct MCV MCH MCHC RDW Plt Count MPV Sodium 143 Potassium 3.4 L Chloride 114 H Carbon Dioxide 26 Anion Gap 4 L BUN 8.7 Creatinine 0.6 Est GFR (CKD-EPI)AfAm 117.27 Est GFR (CKD-EPI)NonAf 101.18 Random Glucose 83 Calcium 8.4 L Total Bilirubin 0.6 AST 17 ALT 17 Alkaline Phosphatase 64 Total Protein 7.8 Albumin 2.7 L Syphilis Serology COVID-19 (WM) aaox3 lying in bed no acute distress Assessment: 07/12/20 11:44 withdrawals Plan: continue detox labs ordered
[2020-07-12] MEDS: THIAMINE HCL 100 MG TABLET (FP) PO SCH (22:13)
[2020-07-12] MEDS: DIVALPROEX SODIUM 500 MG TABLET E.C. PO SCH (22:13)
[2020-07-12] MEDS: OLANZapine 10 MG TABLET PO SCH (22:13)
[2020-07-12] MEDS: MELATONIN 5 MG TABLETS PO SCH (22:14)
[2020-07-13] MEDS ORDERED: chlordiazePOXIDE HCL 10 MG CAPSULE PO PRN
[2020-07-13] MEDS: NYSTATIN 100,000 UNIT/GM TOPICAL CREAM 15 GM TUBE TP SCH (05:51)
[2020-07-13] MEDS: chlordiazePOXIDE HCL 10 MG CAPSULE PO SCH ×4 (05:51→22:05)
[2020-07-13] MEDS: FERROUS SO4 325 MG TABLET (FP) PO SCH ×3 (07:46→17:39)
[2020-07-13 09:27] LABS: BASO % 0.3 % (0-2.0); EOS % 1.6 % (0-4.5); HEMATOCRIT 33.9 % (32.4-45.2); HEMOGLOBIN 11.2 GM/dL (10.7-15.3); LYMPH % 67.2 % (8-40); MCH 30.5 pg (25.7-33.7); MCHC 33.2 g/dl (32.0-36.0); MEAN CELL VOLUME 91.9 fl (80-96); MEAN PLT VOLUME 9.8 fl (7.5-11.1); MONO % 12.6 % (3.8-10.2); NEUT % 18.3 % (42.8-82.8); PLATELET COUNT 145 K/MM3 (134-434); RBC 3.68 M/mm3 (3.60-5.2); RDW 14.4 % (11.6-15.6); WHITE BLOOD COUNT 3.3 K/mm3 (4.0-10.0)
[2020-07-13 09:41] LABS: ALBUMIN 2.9 g/dl (3.4-5.0); BILIRUBIN,TOTAL 0.7 mg/dL (0.2-1); BLOOD UREA NITROGEN 11.5 mg/dL (7-18); CALCIUM 8.6 mg/dL (8.5-10.1); CREATININE 0.7 mg/dL (0.55-1.3); POTASSIUM 4.1 mmol/L (3.5-5.1); TOT PROT 8.4 g/dl (6.4-8.2)
[2020-07-13] MEDS: PRENATAL VITAMINS W/ FOLIC ACID TABLET (FP) PO SCH (10:21)
[2020-07-13] MEDS: NICOTINE 21 MG/24 HOURS TOPICAL PATCH TD SCH (10:21)
[2020-07-13] MEDS: POTASSIUM CHLORIDE ORAL LIQUID 20 MEQ/15 ML PO SCH (10:21)
[2020-07-13] MEDS: DARUNAVIR/COB/EMTRI/TENOF (SYMTUZA) TABLET (NF) PO SCH (10:24)
[2020-07-13] MEDS: TIOTROPIUM BROMIDE 2.5 MCG (SPIRIVA) RESPIMAT INHALER IH SCH (10:25)
[2020-07-13 12:15] LABS: ANISOCYTOSIS 0; MACROCYTOSIS 0; PLATELET ESTIMATE DECREASED
--- NOTE | 2020-07-13 19:14 | PN ---
S CIWA - CIWA Score Nausea/Vomitin-No Nausea/No Vomiting Muscle Tremors: 2 Anxiety: 2 Agitation: 1-Slight > Activity Paroxysmal Sweats: 2 Orientation: 0-Oriented Tacttile Disturbances: 0-None Auditory Disturbances: 1-Very Mild Visual Disturbances: 2-Mild Sensitivity Headache: 0-None Present CIWA-Ar Total Score: 10 BHS Progress Note (SOAP) Subjective: Sweating, Fatigue, Tremors. Objective: Patient A & O X 3, Observed Ambulating on Detox Unit Unassisted. In No Acute Distress. 07/13/20 19:10 Vital Signs Temperature 97.3 F L 07/13/20 16:45 Pulse Rate 79 07/13/20 16:45 Respiratory Rate 20 07/13/20 16:45 Blood Pressure 141/90 07/13/20 16:45 O2 Sat by Pulse Oximetry (%) 98 07/13/20 12:31 Laboratory Tests 07/10/20 07/11/20 07/11/20 17:00 08:45 08:45 WBC 2.5 L RBC 3.29 L Hgb 9.8 L Hct 30.0 L D MCV 91.3 MCH 29.7 MCHC 32.5 RDW 14.6 Plt Count 124 L D MPV 9.7 Absolute Neuts (auto) Neutrophils % Neutrophils % (Manual) Band Neutrophils % Lymphocytes % Lymphocytes % (Manual) Monocytes % Monocytes % (Manual) Eosinophils % Eosinophils % (Manual) Basophils % Basophils % (Manual) Myelocytes % (Man) Promyelocytes % (Man) Blast Cells % (Manual) Nucleated RBC % Metamyelocytes Hypochromia Platelet Estimate Polychromasia Anisocytosis Microcytosis Macrocytosis Sodium Potassium Chloride Carbon Dioxide Anion Gap BUN Creatinine Est GFR (CKD-EPI)AfAm Est GFR (CKD-EPI)NonAf Random Glucose Calcium Total Bilirubin AST ALT Alkaline Phosphatase Total Protein Albumin Syphilis Serology Non-reactive COVID-19 (WM) Not detected 07/11/20 07/13/20 07/13/20 08:45 07:40 07:40 WBC 3.3 L RBC 3.68 Hgb 11.2 Hct 33.9 MCV 91.9 MCH 30.5 MCHC 33.2 RDW 14.4 Plt Count 145 MPV 9.8 Absolute Neuts (auto) 0.6 L Neutrophils % 18.3 L Neutrophils % (Manual) 16.3 L Band Neutrophils % 0.0 Lymphocytes % 67.2 H Lymphocytes % (Manual) 71.4 H Monocytes % 12.6 H Monocytes % (Manual) 8 Eosinophils % 1.6 Eosinophils % (Manual) 2.1 Basophils % 0.3 Basophils % (Manual) 0.0 Myelocytes % (Man) 0 Promyelocytes % (Man) 0 Blast Cells % (Manual) 0 Nucleated RBC % 0 Metamyelocytes 0 Hypochromia 0 Platelet Estimate Decreased Polychromasia 0 Anisocytosis 0 Microcytosis 0 Macrocytosis 0 Sodium 143 144 Potassium 3.4 L 4.1 Chloride 114 H 111 H Carbon Dioxide 26 31 Anion Gap 4 L 2 L BUN 8.7 11.5 Creatinine 0.6 0.7 Est GFR (CKD-EPI)AfAm 117.27 111.47 Est GFR (CKD-EPI)NonAf 101.18 96.18 Random Glucose 83 80 Calcium 8.4 L 8.6 Total Bilirubin 0.6 0.7 AST 17 20 ALT 17 19 Alkaline Phosphatase 64 72 Total Protein 7.8 8.4 H Albumin 2.7 L 2.9 L Syphilis Serology COVID-19 (WM) Lab results noted. Results of Repeat CBC and CMP noted: WBC elevated (3.3) in comparison to Detox Admission level; however, still low. RBC, HGB, HCT, and Platelet levels increased and now within normal range. K level now in normal range (4.1). Will D/C K-Dur. 07/13/20 19:11 Assessment: 07/13/20 19:11 WITHDRAWAL SYMPTOMS. LEUKOPENIA. 07/13/20 19:14 Plan: Continue Detox. Blood Pressure intermittently elevated on last several readings. Patient reports history of HTN; however, no previous treatment. Continue to monitor.
[2020-07-13] MEDS: OLANZapine 10 MG TABLET PO SCH (22:05)
[2020-07-13] MEDS: MELATONIN 5 MG TABLETS PO SCH (22:05)
[2020-07-13] MEDS: THIAMINE HCL 100 MG TABLET (FP) PO SCH (22:05)
[2020-07-13] MEDS: DIVALPROEX SODIUM 500 MG TABLET E.C. PO SCH (22:05)
[2020-07-14] MEDS ORDERED: chlordiazePOXIDE HCL 10 MG CAPSULE PO SCH (05:00)
[2020-07-14] MEDS: NYSTATIN 100,000 UNIT/GM TOPICAL CREAM 15 GM TUBE TP SCH ×3 (06:27→10:45)
[2020-07-14] MEDS: FERROUS SO4 325 MG TABLET (FP) PO SCH (07:08)
[2020-07-14] MEDS ORDERED: MASKS NR ONE (07:36)
[2020-07-14] MEDS: PRENATAL VITAMINS W/ FOLIC ACID TABLET (FP) PO SCH (10:43)
[2020-07-14] MEDS: DARUNAVIR/COB/EMTRI/TENOF (SYMTUZA) TABLET (NF) PO SCH (10:44)
[2020-07-14] MEDS: NICOTINE 21 MG/24 HOURS TOPICAL PATCH TD SCH (10:45)
[2020-07-14] MEDS: TIOTROPIUM BROMIDE 2.5 MCG (SPIRIVA) RESPIMAT INHALER IH SCH (10:46)
[2020-07-14 12:17] VITALS: BP 115/66; PULSE 83; TEMP 97.3
--- NOTE | 2020-07-14 17:02 | DS ---
[facility] Detox Discharge Summary Admission Date: 07/10/20 Discharge Date: 07/14/20 - History Present History: Alcohol Dependence, Cocaine Dependence Additional Comments: Pt requested to be discharged today. As per patient, her was on the 3rd floor and signed out and she wants to leave with him. Pt denies any complaints. Pt was scheduled for discharge tomorrow but stated that she feels fine and denies any complaints. Pt instructed to follow up with her PCP within one week. Pt discharged safely in stable condition. Pertinent Past History: Nicotine dependence HIV Asthma HTN Anemia - Physical Exam Results Vital Signs: Vital Signs Temperature 97.3 F L 07/14/20 09:14 Pulse Rate 83 07/14/20 09:14 Respiratory Rate 18 07/14/20 09:14 Blood Pressure 115/66 07/14/20 09:14 O2 Sat by Pulse Oximetry (%) 94 L 07/14/20 08:15 Pertinent Admission Physical Exam Findings: Withdrawal sxs Laboratory Tests 07/10/20 07/11/20 07/11/20 17:00 08:45 08:45 WBC 2.5 L RBC 3.29 L Hgb 9.8 L Hct 30.0 L D MCV 91.3 MCH 29.7 MCHC 32.5 RDW 14.6 Plt Count 124 L D MPV 9.7 Absolute Neuts (auto) Neutrophils % Neutrophils % (Manual) Band Neutrophils % Lymphocytes % Lymphocytes % (Manual) Monocytes % Monocytes % (Manual) Eosinophils % Eosinophils % (Manual) Basophils % Basophils % (Manual) Myelocytes % (Man) Promyelocytes % (Man) Blast Cells % (Manual) Nucleated RBC % Metamyelocytes Hypochromia Platelet Estimate Polychromasia Anisocytosis Microcytosis Macrocytosis Sodium Potassium Chloride Carbon Dioxide Anion Gap BUN Creatinine Est GFR (CKD-EPI)AfAm Est GFR (CKD-EPI)NonAf Random Glucose Calcium Total Bilirubin AST ALT Alkaline Phosphatase Total Protein Albumin Syphilis Serology Non-reactive COVID-19 (WM) Not detected 07/11/20 07/13/20 07/13/20 08:45 07:40 07:40 WBC 3.3 L RBC 3.68 Hgb 11.2 Hct 33.9 MCV 91.9 MCH 30.5 MCHC 33.2 RDW 14.4 Plt Count 145 MPV 9.8 Absolute Neuts (auto) 0.6 L Neutrophils % 18.3 L Neutrophils % (Manual) 16.3 L Band Neutrophils % 0.0 Lymphocytes % 67.2 H Lymphocytes % (Manual) 71.4 H Monocytes % 12.6 H Monocytes % (Manual) 8 Eosinophils % 1.6 Eosinophils % (Manual) 2.1 Basophils % 0.3 Basophils % (Manual) 0.0 Myelocytes % (Man) 0 Promyelocytes % (Man) 0 Blast Cells % (Manual) 0 Nucleated RBC % 0 Metamyelocytes 0 Hypochromia 0 Platelet Estimate Decreased Polychromasia 0 Anisocytosis 0 Microcytosis 0 Macrocytosis 0 Sodium 143 144 Potassium 3.4 L 4.1 Chloride 114 H 111 H Carbon Dioxide 26 31 Anion Gap 4 L 2 L BUN 8.7 11.5 Creatinine 0.6 0.7 Est GFR (CKD-EPI)AfAm 117.27 111.47 Est GFR (CKD-EPI)NonAf 101.18 96.18 Random Glucose 83 80 Calcium 8.4 L 8.6 Total Bilirubin 0.6 0.7 AST 17 20 ALT 17 19 Alkaline Phosphatase 64 72 Total Protein 7.8 8.4 H Albumin 2.7 L 2.9 L Syphilis Serology COVID-19 (WM) Labs reviewed: pancytopenia and hypoalbuminemia noted (most likely due to alcoholism), follow up with PCP for management - Treatment Hospital Course: Detox Protocol Followed, Detoxed Safely, Responded well, Discharged Condition Good - Medication Discharge Medications: Ambulatory Orders Albuterol Sulfate Inhaler - [Ventolin HFA Inhaler -] 2 puff IH Q4H PRN #1 inhaler 06/07/18 Tiotropium Hector [Spiriva] 1 inh PO DAILY 07/26/18 Darunavir/Cob/Emtri/Tenof Alaf [Symtuza [phone] mg Tab] 1 mg PO DAILY 07/10/20 Divalproex Sodium [Depakote] 1,000 mg PO HS 07/10/20 Olanzapine [Zyprexa] 10 mg PO DAILY 07/10/20 - Diagnosis (1) Pancytopenia Status: Acute (2) Hypoalbuminemia Status: Acute (3) Nicotine dependence Status: Chronic (4) Anemia Status: Chronic (5) Alcohol dependence with uncomplicated withdrawal Status: Acute (6) Asthma Status: Chronic Qualifiers: Asthma severity: mild Asthma persistence: intermittent Asthma complication type: unspecified Qualified Code(s): J45.20 - Mild intermittent asthma, uncomplicated (7) Bipolar disorder Status: Chronic (8) Cocaine dependence Status: Chronic Qualifiers: Substance use status: uncomplicated Qualified Code(s): F14.20 - Cocaine dependence, uncomplicated (9) HIV (human immunodeficiency virus infection) Status: Chronic (10) Hypertension Status: Chronic Qualifiers: Hypertension type: essential hypertension Qualified Code(s): I10 - Essential (primary) hypertension - AMA Did Patient Leave Against Medical Advice: No (Follow up with PCP within one week)
[2020-07-15] MEDS ORDERED: chlordiazePOXIDE HCL 10 MG CAPSULE PO ONE (05:00)
== END 2020-07-14 15:05 | disposition home or self-care (01) | DRG 774 ==
LOC: YASAS 13:10 → Y6N 16:57
PROVIDERS: ADMIT Allergy & Immunology; ATTEND Allergy & Immunology
PROC: HZ2ZZZZ Detoxification Services for Substance Abuse Treatment (ICD-10-PCS; principal; 2020-07-10)
DX: F10.230 Alcohol dependence with withdrawal, uncomplicated (principal); F14.20 Cocaine dependence, uncomplicated; F12.20 Cannabis dependence, uncomplicated; F17.210 Nicotine dependence, cigarettes, uncomplicated; F31.9 Bipolar disorder, unspecified; Z21 Asymptomatic human immunodeficiency virus [HIV] infection status; D64.9 Anemia, unspecified; D61.818 Other pancytopenia; D72.819 Decreased white blood cell count, unspecified; E88.09 Other disorders of plasma-protein metabolism, not elsewhere classified; J44.9 Chronic obstructive pulmonary disease, unspecified; J45.20 Mild intermittent asthma, uncomplicated; Z88.8 Allergy status to other drugs, medicaments and biological substances; Z56.0 Unemployment, unspecified; Z59.0 Homelessness
CPT/HCPCS: 36415; 80053; 85025; 85027; 86780; 90670; U0003

== ENCOUNTER 2021-04-08 09:05 | Inpatient (IN) | payer OTHER ==
[2021-04-08 09:42] VITALS: BMI 20.3
[2021-04-08] MEDS ORDERED: LORazepam 1 MG TABLET PO PRN (09:49)
[2021-04-08] MEDS ORDERED: METHOCARBAMOL 500 MG TABLET PO PRN (09:49)
[2021-04-08] MEDS ORDERED: NICOTINE POLACRILEX 2 MG GUM BUC PRN (09:49)
[2021-04-08] MEDS ORDERED: BISMUTH SUBSALICYLATE 262 MG/15 ML BTL PO PRN (09:49)
[2021-04-08] MEDS ORDERED: MAG HYDROX/AL HYDROX/SIMETH 30 ML UNIT-DOSE CUP PO PRN (09:49)
[2021-04-08] MEDS ORDERED: MAGNESIUM CITRATE 300 ML BOTTLE PO PRN (09:49)
[2021-04-08] MEDS ORDERED: ONDANSETRON *ODT* 4 MG TABLET SL PRN (09:49)
[2021-04-08] MEDS ORDERED: ACETAMINOPHEN 325 MG TABLET (FP) PO PRN ×2 (09:49)
[2021-04-08] MEDS ORDERED: IBUPROFEN 400 MG TABLET (FP) PO PRN (09:49)
[2021-04-08] MEDS ORDERED: MENTHOL/PHENOL 1 EACH UD MM PRN (09:49)
[2021-04-08] MEDS ORDERED: MAGNESIUM HYDROX 2400MG/30ML ORAL SUSPENSION 30 ML CUP PO PRN (09:49)
[2021-04-08] MEDS ORDERED: ALBUTEROL SO4 HFA INHALER IH PRN (09:54)
[2021-04-08] MEDS: hydrOXYzine PAMOATE 25 MG CAPSULE (FP) PO SCH ×4 (11:19→22:50)
[2021-04-08] MEDS: PRENATAL VITAMINS W/ FOLIC ACID TABLET (FP) PO SCH (11:19)
[2021-04-08] MEDS: SULFAMETHOXAZOLE/TRIMETHOPRIM 800MG/160MG D.S. TABLET PO SCH (11:19)
[2021-04-08] MEDS: FERROUS SO4 325 MG TABLET (FP) PO SCH (11:19)
[2021-04-08] MEDS: NICOTINE 14 MG/24 HOURS TOPICAL PATCH TD SCH (11:20)
[2021-04-08] MEDS: DARUNAVIR/COB/EMTRI/TENOF (SYMTUZA) TABLET (NF) PO SCH (12:09)
[2021-04-08 15:32] LABS: EPI CELLS 16 /uL (0-25.1); HYALINE CASTS 8 /uL (0-3.1); PH,URINE 5.5 (5.0-8.0); URINE APPEARANCE CLOUDY; URINE BACTERIA 819 /uL (0-1359); URINE BILIRUBIN NEGATIVE (NEGATIVE); URINE COLOR DK YELLOW; URINE GLUCOSE (UA) NEGATIVE (NEGATIVE); URINE KETONE TRACE (NEGATIVE); URINE LEUK ESTERASE 3+ (NEGATIVE); URINE NITRITE NEGATIVE (NEGATIVE); URINE PROTEIN TRACE (NEGATIVE); URINE RBC 4 /uL (0-23.9); URINE WBC 393 /uL (0-25.8)
[2021-04-08] MEDS: LORazepam 2 MG TABLET PO SCH ×2 (18:20→22:51)
[2021-04-08] MEDS: DIVALPROEX SODIUM 500 MG TABLET E.C. PO SCH (22:50)
[2021-04-08] MEDS: MELATONIN 5 MG TABLETS PO SCH (22:50)
[2021-04-08] MEDS: THIAMINE HCL 100 MG TABLET (FP) PO SCH (22:50)
[2021-04-09] MEDS: LORazepam 2 MG TABLET PO SCH ×4 (05:48→22:53)
[2021-04-09] MEDS: hydrOXYzine PAMOATE 25 MG CAPSULE (FP) PO SCH ×5 (05:49→22:51)
[2021-04-09] MEDS: DARUNAVIR/COB/EMTRI/TENOF (SYMTUZA) TABLET (NF) PO SCH (08:54)
[2021-04-09] MEDS: NICOTINE 14 MG/24 HOURS TOPICAL PATCH TD SCH (10:23)
[2021-04-09] MEDS: DIVALPROEX SODIUM 500 MG TABLET E.C. PO SCH ×2 (10:23→22:52)
[2021-04-09] MEDS: SULFAMETHOXAZOLE/TRIMETHOPRIM 800MG/160MG D.S. TABLET PO SCH (10:23)
[2021-04-09] MEDS: FERROUS SO4 325 MG TABLET (FP) PO SCH (10:23)
[2021-04-09] MEDS: PRENATAL VITAMINS W/ FOLIC ACID TABLET (FP) PO SCH (10:23)
[2021-04-09 10:52] LABS: HEMOGLOBIN 9.5 GM/dL (10.7-15.3); MCH 30.1 pg (25.7-33.7); MCHC 32.9 g/dl (32.0-36.0); MEAN CELL VOLUME 91.5 fl (80-96); MEAN PLT VOLUME 10.4 fl (7.5-11.1); PLATELET COUNT 165 K/MM3 (134-434); RBC 3.17 M/mm3 (3.60-5.2); WHITE BLOOD COUNT 4.1 K/mm3 (4.0-10.0)
[2021-04-09 11:10] LABS: ALBUMIN 3.4 g/dl (3.4-5.0)
[2021-04-09 11:14] LABS: BLOOD UREA NITROGEN 38.4 mg/dL (7-18)
[2021-04-09 11:18] LABS: CREATININE 1.1 mg/dL (0.55-1.3)
[2021-04-09 11:19] LABS: BILIRUBIN,TOTAL 0.5 mg/dL (0.2-1); TOT PROT 9.4 g/dl (6.4-8.2)
[2021-04-09] MEDS: NITROFURANTOIN MACROCRYSTAL 50 MG CAPSULE (FP) PO SCH ×2 (17:21→17:24)
[2021-04-09] MEDS: THIAMINE HCL 100 MG TABLET (FP) PO SCH (22:51)
[2021-04-09] MEDS: MELATONIN 5 MG TABLETS PO SCH (22:51)
[2021-04-10] MEDS: NITROFURANTOIN MACROCRYSTAL 50 MG CAPSULE (FP) PO SCH ×3 (01:33→11:18)
[2021-04-10] MEDS: LORazepam 1 MG TABLET PO SCH ×2 (05:48→10:28)
[2021-04-10] MEDS: hydrOXYzine PAMOATE 25 MG CAPSULE (FP) PO SCH ×3 (05:48→13:34)
[2021-04-10] MEDS: DARUNAVIR/COB/EMTRI/TENOF (SYMTUZA) TABLET (NF) PO SCH (07:09)
[2021-04-10] MEDS: DIVALPROEX SODIUM 500 MG TABLET E.C. PO SCH (10:26)
[2021-04-10] MEDS: PRENATAL VITAMINS W/ FOLIC ACID TABLET (FP) PO SCH (10:26)
[2021-04-10] MEDS: FERROUS SO4 325 MG TABLET (FP) PO SCH (10:26)
[2021-04-10] MEDS: SULFAMETHOXAZOLE/TRIMETHOPRIM 800MG/160MG D.S. TABLET PO SCH (10:26)
[2021-04-10] MEDS: NICOTINE 14 MG/24 HOURS TOPICAL PATCH TD SCH (10:27)
[2021-04-10 13:23] VITALS: BP 104/61; PULSE 86; TEMP 96.3
[2021-04-11] MEDS ORDERED: LORazepam 0.5 MG TABLET PO PRN
[2021-04-11] MEDS ORDERED: LORazepam 0.5 MG TABLET PO SCH (05:00)
[2021-04-12] MEDS ORDERED: LORazepam 0.5 MG TABLET PO ONE (05:00)
== END 2021-04-10 17:04 | disposition left against medical advice (07) | DRG 770 ==
LOC: YASAS 09:05 → Y6N 10:04
PROVIDERS: ADMIT Allergy & Immunology; ATTEND Allergy & Immunology
PROC: HZ2ZZZZ Detoxification Services for Substance Abuse Treatment (ICD-10-PCS; principal; 2021-04-08)
DX: F10.230 Alcohol dependence with withdrawal, uncomplicated (principal); F14.20 Cocaine dependence, uncomplicated; F12.20 Cannabis dependence, uncomplicated; F17.210 Nicotine dependence, cigarettes, uncomplicated; F31.9 Bipolar disorder, unspecified; Z21 Asymptomatic human immunodeficiency virus [HIV] infection status; D64.9 Anemia, unspecified; J45.20 Mild intermittent asthma, uncomplicated; N39.0 Urinary tract infection, site not specified; Z88.8 Allergy status to other drugs, medicaments and biological substances
CPT/HCPCS: 36415; 80053; 80164; 81003; 85027; 86780; C9803; U0003; U0005

== ENCOUNTER 2022-07-17 09:32 | Inpatient (IN) | payer OTHER ==
[2022-07-17 10:37] VITALS: BMI 23.5
[2022-07-17] MEDS ORDERED: NICOTINE POLACRILEX 4 MG GUM BUC PRN (11:33)
[2022-07-17] MEDS ORDERED: BENZOCAINE/MENTHOL (CHLORASEPTIC ) LOZENGE MM PRN (11:33)
[2022-07-17] MEDS ORDERED: MAGNESIUM CITRATE 300 ML BOTTLE PO PRN (11:33)
[2022-07-17] MEDS ORDERED: IBUPROFEN 600 MG TABLET (FP) PO PRN (11:33)
[2022-07-17] MEDS ORDERED: ONDANSETRON *ODT* 4 MG TABLET SL PRN (11:33)
[2022-07-17] MEDS ORDERED: MAG HYDROX/AL HYDROX/SIMETH 30 ML UNIT-DOSE CUP PO PRN (11:33)
[2022-07-17] MEDS ORDERED: LOPERAMIDE HCL 2 MG CAPSULE PO PRN (11:33)
[2022-07-17] MEDS ORDERED: ACETAMINOPHEN 325 MG TABLET (FP) PO PRN ×2 (11:33)
[2022-07-17] MEDS ORDERED: NICOTINE 10 MG CARTRIDGE (INHALER) IH PRN (11:33)
[2022-07-17] MEDS ORDERED: IBUPROFEN 400 MG TABLET (FP) PO PRN (11:33)
[2022-07-17] MEDS ORDERED: chlordiazePOXIDE HCL 25 MG CAPSULE PO PRN (11:33)
[2022-07-17] MEDS ORDERED: BISMUTH SUBSALICYLATE 524 MG/30 ML PO PRN (11:33)
[2022-07-17] MEDS ORDERED: DICYCLOMINE HCL 10 MG CAPSULE PO PRN (11:33)
[2022-07-17] MEDS ORDERED: MAGNESIUM HYDROX 2400MG/30ML ORAL SUSPENSION 30 ML CUP PO PRN (11:33)
[2022-07-17] MEDS ORDERED: NALOXONE HCL (KLOXXADO) 8 MG SPRAY NS PRN (11:33)
[2022-07-17] MEDS ORDERED: ALBUTEROL SO4 HFA INHALER IH PRN (11:43)
[2022-07-17] MEDS: METHOCARBAMOL 500 MG TABLET PO PRN (12:44)
[2022-07-17] MEDS: NICOTINE 7 MG/24 HOURS TOPICAL PATCH TD SCH (12:53)
[2022-07-17 13:28] LABS: HEMATOCRIT 35.2 % (32.4-45.2); HEMOGLOBIN 11.9 GM/dL (10.7-15.3); MCH 31.4 pg (25.7-33.7); MCHC 33.8 g/dl (32.0-36.0); MEAN PLT VOLUME 8.8 fl (7.5-11.1); PLATELET COUNT 287 10^3/uL (134-434); RBC 3.79 M/mm3 (3.60-5.2); RDW 15.4 % (11.6-15.6); WHITE BLOOD COUNT 7.9 K/mm3 (4.0-10.0)
[2022-07-17] MEDS: hydrOXYzine PAMOATE 25 MG CAPSULE (FP) PO SCH ×3 (13:48→23:11)
[2022-07-17 13:51] LABS: ALBUMIN 3.7 g/dl (3.4-5.0)
[2022-07-17 13:52] LABS: BLOOD UREA NITROGEN 30.8 mg/dL (7-18); CALCIUM 9.1 mg/dL (8.5-10.1)
[2022-07-17 13:54] LABS: BILIRUBIN,TOTAL 0.4 mg/dL (0.2-1); CREATININE 1.3 mg/dL (0.55-1.3); TOT PROT 8.7 g/dl (6.4-8.2)
[2022-07-17] MEDS ORDERED: LACTULOSE 20 GM/30 ML UDC (FOR ORAL USE ONLY) PO PRN (14:14)
[2022-07-17] MEDS: chlordiazePOXIDE HCL 25 MG CAPSULE PO SCH (20:04)
[2022-07-17] MEDS ORDERED: LACTULOSE 20 GM/30 ML UDC (FOR ORAL USE ONLY) PO SCH (22:00)
[2022-07-17] MEDS: LACTULOSE 20 GM/30 ML UDC (FOR ORAL USE ONLY) PO SCH (23:06)
[2022-07-17] MEDS: MELATONIN 5 MG TABLETS PO SCH (23:11)
[2022-07-17] MEDS: THIAMINE HCL 100 MG TABLET (FP) PO SCH (23:12)
[2022-07-18] MEDS: chlordiazePOXIDE HCL 25 MG CAPSULE PO SCH ×5 (00:18→22:13)
[2022-07-18] MEDS: hydrOXYzine PAMOATE 25 MG CAPSULE (FP) PO SCH ×5 (06:32→23:22)
[2022-07-18] MEDS: PRENATAL VITAMINS W/ FOLIC ACID TABLET (FP) PO SCH (11:21)
[2022-07-18] MEDS: LACTULOSE 20 GM/30 ML UDC (FOR ORAL USE ONLY) PO SCH ×2 (11:21→22:17)
[2022-07-18] MEDS: NICOTINE 7 MG/24 HOURS TOPICAL PATCH TD SCH (11:31)
[2022-07-18] MEDS: METHOCARBAMOL 500 MG TABLET PO PRN (17:56)
[2022-07-18] MEDS: THIAMINE HCL 100 MG TABLET (FP) PO SCH (22:13)
[2022-07-18] MEDS: MELATONIN 5 MG TABLETS PO SCH (22:13)
[2022-07-19] MEDS ORDERED: chlordiazePOXIDE HCL 25 MG CAPSULE PO SCH (05:00)
[2022-07-19] MEDS: hydrOXYzine PAMOATE 25 MG CAPSULE (FP) PO SCH ×5 (06:51→22:03)
[2022-07-19] MEDS: LACTULOSE 20 GM/30 ML UDC (FOR ORAL USE ONLY) PO SCH ×2 (10:45→22:03)
[2022-07-19] MEDS: PRENATAL VITAMINS W/ FOLIC ACID TABLET (FP) PO SCH (10:45)
[2022-07-19] MEDS ORDERED: DARUNAVIR/COB/EMTRI/TENOF (SYMTUZA) TABLET (NF) PO SCH (10:45)
[2022-07-19] MEDS: NICOTINE 7 MG/24 HOURS TOPICAL PATCH TD SCH (10:46)
[2022-07-19] MEDS ORDERED: LORazepam 1 MG TABLET PO PRN (10:47)
[2022-07-19] MEDS: SULFAMETHOXAZOLE/TRIMETHOPRIM 800MG/160MG D.S. TABLET PO SCH (10:55)
[2022-07-19] MEDS ORDERED: SYMTUZA PO ONE (14:15)
[2022-07-19] MEDS: LORazepam 2 MG TABLET PO SCH ×2 (18:05→22:02)
[2022-07-19] MEDS: THIAMINE HCL 100 MG TABLET (FP) PO SCH (22:02)
[2022-07-19] MEDS: MELATONIN 5 MG TABLETS PO SCH (22:03)
[2022-07-20] MEDS ORDERED: chlordiazePOXIDE HCL 10 MG CAPSULE PO PRN
[2022-07-20] MEDS ORDERED: chlordiazePOXIDE HCL 10 MG CAPSULE PO SCH (05:00)
[2022-07-20] MEDS: hydrOXYzine PAMOATE 25 MG CAPSULE (FP) PO SCH ×5 (06:06→22:27)
[2022-07-20] MEDS: LORazepam 1 MG TABLET PO SCH ×4 (06:07→22:26)
[2022-07-20] MEDS ORDERED: LACTULOSE 20 GM/30 ML UDC (FOR ORAL USE ONLY) PO ONE (09:30)
[2022-07-20] MEDS: PRENATAL VITAMINS W/ FOLIC ACID TABLET (FP) PO SCH (10:34)
[2022-07-20] MEDS: SULFAMETHOXAZOLE/TRIMETHOPRIM 800MG/160MG D.S. TABLET PO SCH (10:34)
[2022-07-20] MEDS: NICOTINE 7 MG/24 HOURS TOPICAL PATCH TD SCH (10:34)
[2022-07-20] MEDS: METHOCARBAMOL 500 MG TABLET PO PRN (10:38)
[2022-07-20] MEDS: LACTULOSE 20 GM/30 ML UDC (FOR ORAL USE ONLY) PO SCH ×3 (14:23→23:18)
[2022-07-20] MEDS: THIAMINE HCL 100 MG TABLET (FP) PO SCH (22:27)
[2022-07-20] MEDS: MELATONIN 5 MG TABLETS PO SCH (22:28)
[2022-07-21] MEDS ORDERED: LORazepam 0.5 MG TABLET PO PRN
[2022-07-21] MEDS ORDERED: chlordiazePOXIDE HCL 10 MG CAPSULE PO SCH (05:00)
[2022-07-21] MEDS: hydrOXYzine PAMOATE 25 MG CAPSULE (FP) PO SCH ×5 (05:50→23:27)
[2022-07-21] MEDS: LORazepam 0.5 MG TABLET PO SCH ×4 (05:50→22:29)
[2022-07-21] MEDS: PRENATAL VITAMINS W/ FOLIC ACID TABLET (FP) PO SCH (10:25)
[2022-07-21] MEDS: NICOTINE 7 MG/24 HOURS TOPICAL PATCH TD SCH (10:25)
[2022-07-21] MEDS: SULFAMETHOXAZOLE/TRIMETHOPRIM 800MG/160MG D.S. TABLET PO SCH (10:25)
[2022-07-21] MEDS: LACTULOSE 20 GM/30 ML UDC (FOR ORAL USE ONLY) PO SCH ×4 (10:27→22:30)
[2022-07-21 18:30] VITALS: RESP 18
[2022-07-21 21:44] VITALS: TEMP 97.1
[2022-07-21] MEDS: THIAMINE HCL 100 MG TABLET (FP) PO SCH (22:29)
[2022-07-21] MEDS: MELATONIN 5 MG TABLETS PO SCH (22:30)
[2022-07-22] MEDS ORDERED: chlordiazePOXIDE HCL 10 MG CAPSULE PO ONE (05:00)
[2022-07-22] MEDS ORDERED: LORazepam 0.5 MG TABLET PO ONE (05:00)
[2022-07-22] MEDS: hydrOXYzine PAMOATE 25 MG CAPSULE (FP) PO SCH ×2 (06:30→10:31)
[2022-07-22 09:17] VITALS: BP 145/96; PULSE 97
[2022-07-22] MEDS: PRENATAL VITAMINS W/ FOLIC ACID TABLET (FP) PO SCH (10:29)
[2022-07-22] MEDS: NICOTINE 7 MG/24 HOURS TOPICAL PATCH TD SCH (10:30)
[2022-07-22] MEDS: SULFAMETHOXAZOLE/TRIMETHOPRIM 800MG/160MG D.S. TABLET PO SCH (10:31)
[2022-07-22] MEDS: LACTULOSE 20 GM/30 ML UDC (FOR ORAL USE ONLY) PO SCH (10:31)
== END 2022-07-22 10:52 | disposition home or self-care (01) | DRG 774 ==
LOC: YASAS 09:32 → Y6N 11:35
PROVIDERS: ADMIT Allergy & Immunology; ATTEND Family Medicine Addiction Medicine
PROC: HZ2ZZZZ Detoxification Services for Substance Abuse Treatment (ICD-10-PCS; principal; 2022-07-17)
DX: F10.230 Alcohol dependence with withdrawal, uncomplicated (principal); F14.20 Cocaine dependence, uncomplicated; F12.20 Cannabis dependence, uncomplicated; F17.210 Nicotine dependence, cigarettes, uncomplicated; F25.0 Schizoaffective disorder, bipolar type; Z21 Asymptomatic human immunodeficiency virus [HIV] infection status; J44.9 Chronic obstructive pulmonary disease, unspecified; J45.20 Mild intermittent asthma, uncomplicated; R79.89 Other specified abnormal findings of blood chemistry; R26.89 Other abnormalities of gait and mobility; R00.0 Tachycardia, unspecified; Z86.19 Personal history of other infectious and parasitic diseases; Z88.8 Allergy status to other drugs, medicaments and biological substances
CPT/HCPCS: 36415; 71046-TC-FY; 80053; 80164; 82140; 82962; 84520; 85027; 86780; C9803-CS; U0003; U0005

== ENCOUNTER 2023-06-07 13:00 | Inpatient (IN) | payer OTHER ==
[2023-06-07 13:41] VITALS: BMI 19.5
[2023-06-07] MEDS ORDERED: MAGNESIUM HYDROX 2400MG/30ML ORAL SUSPENSION 30 ML CUP PO PRN (16:54)
[2023-06-07] MEDS ORDERED: guaiFENesin 600 MG TABLET.ER (FP) PO PRN (16:54)
[2023-06-07] MEDS ORDERED: POLYETHYLENE GLYCOL (HEALTHYLAX) 3350 17 GM PACKET PO PRN (16:54)
[2023-06-07] MEDS ORDERED: BENZONATATE 200 MG CAPSULE PO PRN (16:54)
[2023-06-07] MEDS ORDERED: MAG HYDROX/AL HYDROX/SIMETH 30 ML UNIT-DOSE CUP PO PRN (16:54)
[2023-06-07] MEDS ORDERED: IBUPROFEN 400 MG TABLET (FP) PO PRN (16:54)
[2023-06-07] MEDS ORDERED: BENZOCAINE/MENTHOL (CHLORASEPTIC ) LOZENGE MM PRN (16:54)
[2023-06-07] MEDS ORDERED: BISMUTH SUBSALICYLATE 524 MG/30 ML PO PRN (16:54)
[2023-06-07] MEDS ORDERED: ONDANSETRON *ODT* 4 MG TABLET SL PRN (16:54)
[2023-06-07] MEDS ORDERED: LOPERAMIDE HCL 2 MG CAPSULE PO PRN (16:54)
[2023-06-07] MEDS ORDERED: DICYCLOMINE HCL 10 MG CAPSULE PO PRN (16:54)
[2023-06-07] MEDS ORDERED: NALOXONE HCL 0.4 MG/ML VIAL IM PRN (16:54)
[2023-06-07] MEDS ORDERED: IBUPROFEN 600 MG TABLET (FP) PO PRN (16:54)
[2023-06-07] MEDS ORDERED: ACETAMINOPHEN 325 MG TABLET (FP) PO PRN (16:54)
[2023-06-07] MEDS ORDERED: NALOXONE HCL (KLOXXADO) 8 MG SPRAY NS PRN (16:54)
[2023-06-07] MEDS: MELATONIN 5 MG TABLETS PO SCH (23:03)
[2023-06-07] MEDS: THIAMINE HCL 100 MG TABLET (FP) PO SCH (23:03)
[2023-06-08] MEDS ORDERED: ALBUTEROL SO4 HFA INHALER IH PRN (09:24)
[2023-06-08] MEDS ORDERED: LORazepam 1 MG TABLET PO PRN (09:58)
[2023-06-08] MEDS ORDERED: MOMETASONE FUROATE 220 MCG/IH INHALER IH SCH (10:00)
[2023-06-08 10:24] LABS: HEMATOCRIT 30.8 % (32.4-45.2); HEMOGLOBIN 10.2 GM/dL (10.7-15.3); MCH 27.4 pg (25.7-33.7); MCHC 33.1 g/dl (32.0-36.0); MEAN CELL VOLUME 82.8 fl (80-96); MEAN PLT VOLUME 10.2 fl (7.5-11.1); PLATELET COUNT 104 10^3/uL (134-434); RBC 3.72 M/mm3 (3.60-5.2); RDW 18.4 % (11.6-15.6); WHITE BLOOD COUNT 3.4 K/mm3 (4.0-10.0)
[2023-06-08 10:30] LABS: POTASSIUM 3.9 mmol/L (3.5-5.1)
[2023-06-08] MEDS: PRENATAL VITAMINS W/ FOLIC ACID TABLET (FP) PO SCH (10:31)
[2023-06-08] MEDS: NICOTINE 14 MG/24 HOURS TOPICAL PATCH TD SCH (10:31)
[2023-06-08] MEDS: LORazepam 1 MG TABLET PO SCH ×3 (10:31→22:13)
[2023-06-08 10:33] LABS: ALBUMIN 2.5 g/dl (3.4-5.0)
[2023-06-08] MEDS: TIOTROPIUM BROMIDE 2.5 MCG (SPIRIVA) RESPIMAT INHALER IH SCH (10:33)
[2023-06-08 10:37] LABS: CREATININE 0.8 mg/dL (0.55-1.3); TOT PROT 7.8 g/dl (6.4-8.2)
[2023-06-08 10:38] LABS: BILIRUBIN,TOTAL 0.4 mg/dL (0.2-1)
[2023-06-08] MEDS ORDERED: LORazepam 2 MG TABLET PO SCH (11:00)
[2023-06-08] MEDS: THIAMINE HCL 100 MG TABLET (FP) PO SCH (22:13)
[2023-06-08] MEDS: MELATONIN 5 MG TABLETS PO SCH (22:13)
[2023-06-09] MEDS: LORazepam 1 MG TABLET PO SCH ×2 (05:55→10:16)
[2023-06-09 09:47] VITALS: BP 129/84; PULSE 79; RESP 18; TEMP 98.1
[2023-06-09] MEDS: PRENATAL VITAMINS W/ FOLIC ACID TABLET (FP) PO SCH (10:15)
[2023-06-09] MEDS: NICOTINE 14 MG/24 HOURS TOPICAL PATCH TD SCH (10:15)
[2023-06-09] MEDS: TIOTROPIUM BROMIDE 2.5 MCG (SPIRIVA) RESPIMAT INHALER IH SCH (10:15)
[2023-06-10] MEDS ORDERED: LORazepam 0.5 MG TABLET PO PRN
[2023-06-10] MEDS ORDERED: LORazepam 0.5 MG TABLET PO SCH (05:00)
[2023-06-11] MEDS ORDERED: LORazepam 0.5 MG TABLET PO ONE (05:00)
== END 2023-06-09 11:15 | disposition left against medical advice (07) | DRG 770 ==
LOC: YASAS 13:00 → Y6N 16:46
PROVIDERS: ADMIT Allergy & Immunology; ATTEND Allergy & Immunology
PROC: HZ2ZZZZ Detoxification Services for Substance Abuse Treatment (ICD-10-PCS; principal; 2023-06-07)
DX: F10.230 Alcohol dependence with withdrawal, uncomplicated (principal); F14.20 Cocaine dependence, uncomplicated; F12.20 Cannabis dependence, uncomplicated; F17.210 Nicotine dependence, cigarettes, uncomplicated; F25.0 Schizoaffective disorder, bipolar type; Z21 Asymptomatic human immunodeficiency virus [HIV] infection status; J43.9 Emphysema, unspecified; J45.20 Mild intermittent asthma, uncomplicated; D72.810 Lymphocytopenia; R63.4 Abnormal weight loss; Z68.1 Body mass index [BMI] 19.9 or less, adult; Z88.8 Allergy status to other drugs, medicaments and biological substances
CPT/HCPCS: 36415; 80053; 85027; 86780; 87635